=== PATIENT | male | born 1975 | race Caucasian/White ===

== ENCOUNTER 2016-07-10 15:35 | Inpatient (IN) | payer OTHER ==
[2016-07-10] MEDS ORDERED: Aspirin 81 MG Tab.Chew ONE (15:56)
[2016-07-10] MEDS ORDERED: Nitroglycerin 0.4 MG Tab.SL ONE (15:57)
[2016-07-10] MEDS ORDERED: HYDROmorphone 1 MG/ML Syringe IVPUSH ONE (15:58)
[2016-07-10] MEDS ORDERED: Metoclopramide 10 MG/2 ML SDV IVPUSH ONE (15:59)
[2016-07-10] MEDS ORDERED: Sodium Chloride 0.9% 1,000 ML IV SCH (16:00)
[2016-07-10] MEDS ORDERED: Nitroglycerin/D5W 25 MG/250 ML BOTTLE IV SCH (16:00)
[2016-07-10] MEDS ORDERED: Hyoscyamine 0.125 MG Tab.SL SL ONE (16:03)
--- NOTE | 2016-07-10 16:04 | EDM.PDOC ---
ED HISTORY OF PRESENT ILLNESS - General Chief Complaint: Chest Pain Stated Complaint: CHEST PAIN Time Seen by Provider: 07/10/16 15:58 Source of Information: Reports: Patient History Limitations: Reports: No limitations - History of Present Illness INITIAL COMMENTS - FREE TEXT/NARRATIVE: 41-year-old male presents the ED with complaints of severe retrosternal mid chest pain that does not radiate to his back throat neck or arm. States he woke with this about 1300 hours today. 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 Still has a strong smell of ethanol on his breath. States the pain is constant rates it as a 10 out of 10. He said vomiting x2 every tried to time he tried to drink water the last half hour. No hematemesis. Does have a history of GERD. Rarely uses TUMS or Rolaids. Has no known heart disease. Smokes occasionally when he drinks.pain has a strong burning quality to it. Symptom Onset Date: 07/10/16 Symptom Onset Time: 13:00 Timing/Duration: Reports: Hour(s):, Sudden onset Severity: moderate (awoke from sleep with this pain) Location, General: Reports: chest (central chest pain) Quality: Reports: Ache, Burning, Pressure Improves with: Reports: None Worsens with: Reports: Other (preps worse with swallowing water. I anesthesia.) Context, General: Reports: Other (awoke from sleep with this discomfort.). Denies: Activity, Exercise, Lifting, Sick contact, Trauma Associated Symptoms (General): Reports: chest pain, nausea/vomiting (vomited twice of water that he tried to drink in the last half hour). Denies: confusion , cough (see history of present illness), cough w sputum, diaphoresis, fever/ chills, headaches, loss of appetite, malaise, rash, seizure, shortness of breath , syncope Treatments [employer]ER [employer]: Reports: Other (see below) (none) - Related Data Allergies/ADRs: Allergies Allergy/AdvReac Type Severity Reaction Status Date / Time No Known Allergies Allergy Verified 07/10/16 15:42 Home Meds: Home Meds Aspirin [Ecotrin] 81 mg PO DAILY 07/10/16 [History] Humalog Pump 0 units INJECT 07/10/16 [History] Lisinopril 20 mg PO DAILY 07/10/16 [History] Omeprazole 20 mg PO DAILY 07/10/16 [History] atorvaSTATin [Lipitor] 10 mg PO DAILY 07/10/16 [History] Past Medical History Cardiovascular History: Reports: High cholesterol, Hypertension Endocrine/Metabolic History: Reports: Diabetes, type I (controlled with an insulin pump which at this point time does not appear to be connected to his skin.he has been type I diabetic since age 13. Currently using about 64 units of insulin per day. Boluses around 30 units.) - Past Surgical History Musculoskeletal Surgical History: Reports: Shoulder surgery Social & Family History - Tobacco Use Smoking Status *Q: Current Some Day Smoker Years of Tobacco use: 10 Packs/Tins Daily: 0.2 - Caffeine Use Caffeine Use: Reports: Coffee - Recreational Drug Use Recreational Drug Use: No - Living Situation & Occupation Living situation: Reports: Occupation: employed ED ROS GENERAL - Review of Systems Review Of Systems: See Below Constitutional: Denies: fever, chills, malaise, weakness, fatigue, weight loss HEENT: Reports: No symptoms, Other (feels very dry in his mouth.) Respiratory: Denies: Shortness of Breath, Wheezing, Pleuritic Chest Pain, Cough , Sputum, Hemoptysis Cardiovascular: Reports: Chest pain (see history present illness). Denies: Blood pressure problem, Claudication, Dyspnea on exertion, Edema, Lightheadedness, Orthopnea, Palpitations Endocrine: Reports: no symptoms GI/Abdominal: Reports: Abdominal pain (some pain in the pit of his stomach or epigastrium.), Nausea, Vomiting (followup water twice since he tried to drink since getting up from bed.). Denies: Diarrhea : Reports: no symptoms Musculoskeletal: Reports: no symptoms Skin: Reports: no symptoms Neurological: Reports: No Symptoms ED EXAM, GENERAL - Physical Exam Exam: See Below Exam Limited By: No limitations General Appearance: alert, moderate distress, other (in quite significant discomfort.breath smells strongly of alcohol.) Eye Exam: bilateral eye: conjunctival injection (mild bilaterally) Throat/Mouth: Normal inspection, Normal lips, Normal teeth, Normal oropharynx Head: atraumatic, normocephalic Neck: normal inspection, supple, non-tender, full range of motion. No: lymphadenopathy (L), lymphadenopathy (R) Respiratory/Chest: lungs clear, no accessory muscle use, chest non-tender, respiratory distress Cardiovascular: normal peripheral pulses, regular rate, rhythm, no edema, no gallop, no JVD, no murmur Peripheral Pulses: 3+: posterior tibial (L), posterior tibial (R), dorsalis pedis (L), dorsalis pedis (R) GI/Abdominal: normal bowel sounds, soft, non tender, no organomegaly, no distention, no abnormal bruit, other (Male) Exam: No hernia (negative Holt sign) Extremities: normal inspection, normal range of motion, non-tender, no pedal edema, normal capillary refill Neurological: alert, oriented, CN II-XII intact, normal cognition, normal gait Psychiatric: normal affect, normal mood Skin Exam: Warm, Dry, Intact, Normal color, No rash EKG INTERPRETATION EKG Date: 07/10/16 Time: 15:45 Rhythm: NSR Rate (beats/min): 85 [place]: normal P-wave: present QRS: other (low voltage limb leads.) ST-T: normal QT: normal Course - Vital Signs Last Recorded V/S: Last Vital Signs Temp 36.1 C 07/10/16 15:42 Pulse 90 07/10/16 15:42 Resp 22 H 07/10/16 15:42 BP 102/41 L 07/10/16 16:42 Pulse Ox 100 07/10/16 15:42 - Orders/Labs/Meds Orders: Active Orders 24 hr Category Date Time Status Admission Status [Patient Status] [ADT] Routine ADT 07/10/16 18:40 Active EKG Documentation Completion [RC] STAT Care 07/10/16 16:01 Active Chest 1V Frontal [CR] Stat Exams 07/10/16 16:01 Taken CKMB [CHEM] Stat Lab 07/10/16 19:30 Ordered DRUG SCREEN, URINE [URCHEM] Stat Lab 07/10/16 17:35 Uncollected KETONES,BLOOD [CHEM] Stat Lab 07/10/16 18:05 Received TROPONIN I [CHEM] Stat Lab 07/10/16 19:30 Ordered URINALYSIS W/MICROSCOPIC [UA W/MICROSCOPIC] [URIN] Stat Lab 07/10/16 17:35 Uncollected Nitroglycerin/D5W [Nitroglycerin 25 MG/D5W 250 ML] Med 07/10/16 16:00 Active 25 mg in 250 ml IV TITRATE Sodium Chloride 0.9% [Normal Saline] 1,000 ml Med 07/10/16 18:46 Active IV ONETIME Medication Orders Nitroglycerin/Dextrose (Nitroglycerin 25 Mg/D5w 250 Ml) 25 mg in 250 mls @ 6 mls/hr IV TITRATE WERNER PRN Reason: 10 MCG/MIN Last Admin: 07/10/16 16:15 Dose: 10 mcg/min, 6 mls/hr Sodium Chloride (Normal Saline) 1,000 mls @ 999 mls/hr IV ONETIME ONE Stop: 07/10/16 19:46 Last Admin: 07/10/16 19:36 Dose: 999 mls/hr Labs: Laboratory Tests 07/10/16 07/10/16 07/10/16 Range/Units 15:50 15:50 15:50 WBC 12.52 H (4.23-9.07) K/mm3 RBC 5.25 (4.63-6.08) M/mm3 Hgb 16.6 (13.7-17.5) gm/L Hct 48.2 (40.1-51.0) % MCV 91.8 (79.0-92.2) fl MCH 31.6 (25.7-32.2) pg MCHC 34.4 (32.2-35.5) g/dl RDW Std Deviation 40.0 (35.1-43.9) fL Plt Count 345 H (163-337) K/mm3 MPV 10.6 (9.4-12.3) fl Neutrophils % (Manual) 75 H (40-60) % Band Neutrophils % 1 (0-10) % Lymphocytes % (Manual) 23 (20-40) % Atypical Lymphs % 0 % Monocytes % (Manual) 0 L (2-10) % Eosinophils % (Manual) 0 L (0.8-7.0) % Basophils % (Manual) 1 (0.2-1.2) Platelet Estimate Adequate RBC Morph Comment Normal PT 10.0 (8.0-13.0) SECONDS INR 0.92 Puncture Site ABG pH (7.35-7.45) ABG pCO2 (35.0-45.0) mmHg ABG pO2 (80.0-100.0) mmHg ABG HCO3 (22.0-26.0) meq/L ABG O2 Saturation (96.0-97.0) % ABG Base Excess (-2-2.0) Nick Test A-a Gradient mmHg FiO2 (21.00-100.00) % Sodium 140 (136-145) mEq/L Potassium 4.6 (3.5-5.1) mEq/L Chloride 99 (98-107) mEq/L Carbon Dioxide 17 L (21-32) mEq/L Anion Gap 28.6 H (5-15) BUN 19 H (7-18) mg/dL Creatinine 1.6 H (0.7-1.3) mg/dL Est Cr Clr Drug Dosing 60.14 mL/min Estimated GFR (MDRD) 48 (>60) mL/min BUN/Creatinine Ratio 11.9 L (14-18) Glucose 305 H (74-106) mg/dL Lactic Acid (0.4-2.0) mmol/L Calcium 9.6 (8.5-10.1) mg/dL Magnesium 1.8 (1.8-2.4) mg/dl Total Bilirubin 0.6 (0.2-1.0) mg/dL AST 35 (15-37) U/L ALT 110 H (16-63) U/L Alkaline Phosphatase 83 (46-116) U/L CK-MB (CK-2) 0.9 (0-3.6) ng/ml Troponin I < 0.017 (0.00-0.056) ng/mL C-Reactive Protein < 0.2 (<1.0) mg/dL Total Protein 7.7 (6.4-8.2) g/dl Albumin 4.8 (3.4-5.0) g/dl Globulin 2.9 gm/dL Albumin/Globulin Ratio 1.7 (1-2) Amylase 39 (25-115) U/L Salicylates (2.8-20) mg/dL Acetaminophen (10-30) ug/mL Ethyl Alcohol (0.00) gm% 07/10/16 07/10/16 07/10/16 Range/Units 16:05 18:04 18:05 WBC (4.23-9.07) K/mm3 RBC (4.63-6.08) M/mm3 Hgb (13.7-17.5) gm/L Hct (40.1-51.0) % MCV (79.0-92.2) fl MCH (25.7-32.2) pg MCHC (32.2-35.5) g/dl RDW Std Deviation (35.1-43.9) fL Plt Count (163-337) K/mm3 MPV (9.4-12.3) fl Neutrophils % (Manual) (40-60) % Band Neutrophils % (0-10) % Lymphocytes % (Manual) (20-40) % Atypical Lymphs % % Monocytes % (Manual) (2-10) % Eosinophils % (Manual) (0.8-7.0) % Basophils % (Manual) (0.2-1.2) Platelet Estimate RBC Morph Comment PT (8.0-13.0) SECONDS INR Puncture Site Lt radial ABG pH 7.20 L (7.35-7.45) ABG pCO2 26.0 L (35.0-45.0) mmHg ABG pO2 83.0 (80.0-100.0) mmHg ABG HCO3 9.9 L (22.0-26.0) meq/L ABG O2 Saturation 96.0 (96.0-97.0) % ABG Base Excess -17.0 L (-2-2.0) Nick Test Positive A-a Gradient 26 mmHg FiO2 21.00 (21.00-100.00) % Sodium (136-145) mEq/L Potassium (3.5-5.1) mEq/L Chloride (98-107) mEq/L Carbon Dioxide (21-32) mEq/L Anion Gap (5-15) BUN (7-18) mg/dL Creatinine (0.7-1.3) mg/dL Est Cr Clr Drug Dosing mL/min Estimated GFR (MDRD) (>60) mL/min BUN/Creatinine Ratio (14-18) Glucose (74-106) mg/dL Lactic Acid 10.5 H (0.4-2.0) mmol/L Calcium (8.5-10.1) mg/dL Magnesium (1.8-2.4) mg/dl Total Bilirubin (0.2-1.0) mg/dL AST (15-37) U/L ALT (16-63) U/L Alkaline Phosphatase (46-116) U/L CK-MB (CK-2) (0-3.6) ng/ml Troponin I (0.00-0.056) ng/mL C-Reactive Protein (<1.0) mg/dL Total Protein (6.4-8.2) g/dl Albumin (3.4-5.0) g/dl Globulin gm/dL Albumin/Globulin Ratio (1-2) Amylase (25-115) U/L Salicylates (2.8-20) mg/dL Acetaminophen (10-30) ug/mL Ethyl Alcohol 116.00 (0.00) gm% 07/10/16 07/10/16 Range/Units 18:05 18:05 WBC (4.23-9.07) K/mm3 RBC (4.63-6.08) M/mm3 Hgb (13.7-17.5) gm/L Hct (40.1-51.0) % MCV (79.0-92.2) fl MCH (25.7-32.2) pg MCHC (32.2-35.5) g/dl RDW Std Deviation (35.1-43.9) fL Plt Count (163-337) K/mm3 MPV (9.4-12.3) fl Neutrophils % (Manual) (40-60) % Band Neutrophils % (0-10) % Lymphocytes % (Manual) (20-40) % Atypical Lymphs % % Monocytes % (Manual) (2-10) % Eosinophils % (Manual) (0.8-7.0) % Basophils % (Manual) (0.2-1.2) Platelet Estimate RBC Morph Comment PT (8.0-13.0) SECONDS INR Puncture Site ABG pH (7.35-7.45) ABG pCO2 (35.0-45.0) mmHg ABG pO2 (80.0-100.0) mmHg ABG HCO3 (22.0-26.0) meq/L ABG O2 Saturation (96.0-97.0) % ABG Base Excess (-2-2.0) Nick Test A-a Gradient mmHg FiO2 (21.00-100.00) % Sodium (136-145) mEq/L Potassium (3.5-5.1) mEq/L Chloride (98-107) mEq/L Carbon Dioxide (21-32) mEq/L Anion Gap (5-15) BUN (7-18) mg/dL Creatinine (0.7-1.3) mg/dL Est Cr Clr Drug Dosing mL/min Estimated GFR (MDRD) (>60) mL/min BUN/Creatinine Ratio (14-18) Glucose (74-106) mg/dL Lactic Acid (0.4-2.0) mmol/L Calcium (8.5-10.1) mg/dL Magnesium (1.8-2.4) mg/dl Total Bilirubin (0.2-1.0) mg/dL AST (15-37) U/L ALT (16-63) U/L Alkaline Phosphatase (46-116) U/L CK-MB (CK-2) (0-3.6) ng/ml Troponin I (0.00-0.056) ng/mL C-Reactive Protein (<1.0) mg/dL Total Protein (6.4-8.2) g/dl Albumin (3.4-5.0) g/dl Globulin gm/dL Albumin/Globulin Ratio (1-2) Amylase (25-115) U/L Salicylates 2.9 (2.8-20) mg/dL Acetaminophen 1 L (10-30) ug/mL Ethyl Alcohol (0.00) gm% Meds: Medications Generic Name Dose Route Start Last Admin Trade Name Freq PRN Reason Stop Dose Admin Nitroglycerin/Dextrose 25 mg in 250 mls @ 6 mls/hr 07/10/16 16:00 07/10/16 16 :15 Nitroglycerin 25 Mg/D5w 250 Ml IV 10 mcg/min TITRATE WERNER 6 mls/hr 10 MCG/MIN Administration Sodium Chloride 1,000 mls @ 999 mls/hr 07/10/16 18:46 07/10/16 19:36 Normal Saline IV 07/10/16 19:46 999 mls/hr ONETIME ONE Administration Discontinued Medications Generic Name Dose Route Start Last Admin Trade Name Freq PRN Reason Stop Dose Admin Aspirin Confirm 07/10/16 15:56 07/10/16 16:42 Aspirin Administered 07/10/16 15:57 Not Given Dose 324 mg .ROUTE .STK-MED ONE Hydromorphone HCl 1 mg 07/10/16 15:58 07/10/16 16:06 Dilaudid IVPUSH 07/10/16 15:59 1 mg ONETIME ONE Administration Hyoscyamine 0.125 mg 07/10/16 16:03 07/10/16 16:08 Hyomax-Sl SL 07/10/16 16:04 0.125 mg ONETIME ONE Administration Sodium Chloride 1,000 mls @ 150 mls/hr 07/10/16 16:00 07/10/16 16:17 Normal Saline IV 150 mls/hr ASDIRECTED WERNER Administration Sodium Chloride 1,000 mls @ 999 mls/hr 07/10/16 17:45 07/10/16 17:55 Normal Saline IV 07/10/16 18:45 999 mls/hr ONETIME ONE Administration Sodium Chloride 1,000 mls @ 999 mls/hr 07/10/16 18:37 Normal Saline IV 07/10/16 19:37 ONETIME ONE Insulin Human Regular 10 unit 07/11/16 06:00 Humulin R SUBCUT 07/11/16 06:01 ONETIME ONE Protocol Insulin Human Regular Confirm 07/10/16 18:01 07/10/16 18:33 Humulin R Administered 07/10/16 18:02 Not Given Dose 300 unit .ROUTE .STK-MED ONE Insulin Human Regular 10 unit 07/10/16 18:00 07/10/16 18:20 Humulin R SUBCUT 07/10/16 18:01 10 units ONETIME ONE Administration Protocol Metoclopramide HCl 10 mg 07/10/16 15:59 07/10/16 16:04 Reglan IVPUSH 07/10/16 16:00 10 mg ONETIME ONE Administration Nitroglycerin Confirm 07/10/16 15:57 07/10/16 16:42 Nitrostat Administered 07/10/16 15:58 Not Given Dose 0.4 mg .ROUTE .STK-MED ONE Ondansetron HCl 4 mg 07/10/16 17:50 07/10/16 17:55 Zofran IVPUSH 07/10/16 17:51 4 mg ONETIME ONE Administration - Radiology Interpretation Free Text/Narrative:: 31-year-old male presenting to the ED with acute onset of central chest pain it does not radiate anywhere. States he awoke with this chest pain at 1300 hours. Rates it as a 10 out of 10. Has no known cardiac disease. Does smoke half a pack of cigarettes daily. He was out drinking alcohol into the wee hours of the morning. He has vomited twice of water that he try to take him since he awoke. Pain does not radiate through to his back.does have a history of GERD but doesn' t take medicine for it. ECG shows sinus rhythm without any signs of ischemia at 85 per minute. I suspect his pain is due to reflux and esophagitis. May be hiatal hernia. However he will be treated like an NC until we know for sure. Aspirin 324 mg 2 nitro drip at 10 mcg per minute. Initial BP is 129/86. Chest x- ray routine labs include cardiac markers. Given Dilaudid 1 mg IV with Reglan 10 mg IV for pain relief. routine labs include cardiac markers. Also an amylase and a serum blood alcohol level. We'll try Levsin 0.125 mg sublingual as well to relieve tension esophageal spasm. - Re-Assessments/Exams Free Text/Narrative Re-Assessment/Exam: 07/10/16 16:22 :blood pressure dropped transiently to 68 systolic with a nitro drip. He was therefore discontinued. 5 minutes later BP i is back up to 102 systolic with a heart rate of 89. 07/10/16 17:05: one view portable chest x-ray is within normal limits. Her blood pressure is 109/59 with a heart rate of 85 and saw sats of 94% on room air. 07/10/16 17:38labs are back and showed elevated white count at 12.52 with a 75% neutrophils 1% band cells. Hemoglobin is 16.6 hematocrit 48.2. Is normal 3 and 45,000. Coags normal. Sodium 140 potassium 4.6 chloride 97 bicarbonate is low at 17. Anion gap was markedly elevated at 28.6. Creatinine is 1.6 BUN is 19 glucose 305.blood alcohol is zero. Therefore we have a significant metabolic acidosis of unclear etiology. His blood sugar is elevated. Serum ketones and lactic acid urine for uric crystals and salicylate levels will be checked in his blood. IV will be opened to full. Cardiac markers are normal. Amylase is 39. 07/10/16 17:50 Further questioning of the patient's indicates that he was just out drinking hard last evening about 6 clock this morning. He is in fact an insulin-dependent diabetic and on insulin pump which at present is disconnected from his skin. I can now smells strongly ketones on his breath. Therefore we will leave the insulin pump disconnected. We will use small doses of intravenous insulin to control his blood sugars and will require 3-4 L of IV fluids to correct the metabolic acidosis.metabolic acidosis is secondary to diabetic ketoacidosis precipitated by alcohol-induced ketosis.is vomiting again. We'll give him Zofran 4 mg IV. 07/10/16 18:24blood gases shows pH of 7.2 with a base deficit this deficit of - 17. Therefore he is going to be several hours if not 1224 hours to correct his metabolic acidosis. I will therefore speak with on-call hospice with a view to getting admitted to the hospital for fluid replacement and continued small doses of insulin as needed to correct his combination diabetic and alcohol- induced ketosis. 07/10/16 18:47Spoke with on-call hospitalist Dr. Grier and decision made to admit this patient to the intensive care unit for treatment of his diabetic ketoacidosis and alcohol-induced ketosis. He require multiple units of saline to reverse the acidosis. Require small doses of insulin ideally subcutaneously to control his blood sugars. His presentation was that of central chest pain and when her to repeat cardiac markers. I will repeat them at 1900 hours 07/10/16 19:38 Lab called and identified a lab area in his alcohol content in his blood. It was reported as zero. It was actually 0.116 g percent.lactic acid level also came back markedly elevated at 10.5. This should be repeated in 3-4 hours as well. Serum salicylate level was 2.9 well within normal range.Note: serum ketones are not yet back either. Second set of cardiac markers are negative back either. Departure - Departure Time of Disposition: 19:44 Disposition: Admitted As Inpatient 65 Condition: serious Clinical Impression: Alcoholic ketosis, Chest pain in adult Diabetic ketoacidosis associated with type 1 diabetes mellitus Qualifiers: Diabetes mellitus complication detail: without coma Qualified Code(s): E10.10 - Type 1 diabetes mellitus with ketoacidosis without coma Intractable nausea and vomiting Qualifiers: Vomiting type: unspecified Qualified Code(s): R11.2 - Nausea with vomiting, unspecified Alcohol intoxication Qualifiers: Complication of substance-induced condition: uncomplicated Qualified Code(s): F10.120 - Alcohol abuse with intoxication, uncomplicated Referrals: Vikram Salvador MD [Primary Care Provider] - Forms: ED Department Discharge Additional Instructions: patient to be admitted to the intensive care he had in the care of hospitalist Dr. Grier to repair his metabolic acidotic state which is from a combination of alcohol abuse alcohol use ketosis and diabetic ketoacidosis. He also has a significant lactic acidosis. Presentation with central chest pain and second set of cardiac markers are now back time of discharge to the intensive care unit. - My Orders Last 24 Hours: My Active Orders 07/10/16 16:00 Nitroglycerin/D5W [Nitroglycerin 25 MG/D5W 250 ML] 25 mg in 250 ml IV TITRATE 07/10/16 16:01 EKG Documentation Completion [RC] STAT Chest 1V Frontal [CR] Stat 07/10/16 17:35 DRUG SCREEN, URINE [URCHEM] Stat URINALYSIS W/MICROSCOPIC [UA W/MICROSCOPIC] [URIN] Stat 07/10/16 18:05 KETONES,BLOOD [CHEM] Stat 07/10/16 18:40 Admission Status [Patient Status] [ADT] Routine 07/10/16 18:46 Sodium Chloride 0.9% [Normal Saline] 1,000 ml IV ONETIME 07/10/16 19:30 CKMB [CHEM] Stat TROPONIN I [CHEM] Stat - Assessment/Plan Last 24 Hours: My Active Orders 07/10/16 16:00 Nitroglycerin/D5W [Nitroglycerin 25 MG/D5W 250 ML] 25 mg in 250 ml IV TITRATE 07/10/16 16:01 EKG Documentation Completion [RC] STAT Chest 1V Frontal [CR] Stat 07/10/16 17:35 DRUG SCREEN, URINE [URCHEM] Stat URINALYSIS W/MICROSCOPIC [UA W/MICROSCOPIC] [URIN] Stat 07/10/16 18:05 KETONES,BLOOD [CHEM] Stat 07/10/16 18:40 Admission Status [Patient Status] [ADT] Routine 07/10/16 18:46 Sodium Chloride 0.9% [Normal Saline] 1,000 ml IV ONETIME 07/10/16 19:30 CKMB [CHEM] Stat TROPONIN I [CHEM] Stat
[2016-07-10] MEDS ORDERED: Sodium Chloride 0.9% 1,000 ML IV ONE ×3 (17:45→18:46)
[2016-07-10] MEDS ORDERED: Ondansetron 4 MG/2 ML SDV IVPUSH ONE (17:50)
[2016-07-10] MEDS ORDERED: Insulin Regular, Human 100 Units/ML 3 ML Vial SUBCUT ONE (18:00)
[2016-07-10] MEDS: Insulin Regular, Human 100 Units/ML 3 ML Vial ONE ×2 (18:22→18:33)
[2016-07-10] MEDS ORDERED: Temazepam 30 MG Cap PO PRN (21:00)
[2016-07-10] MEDS ORDERED: Acetaminophen 325 MG Tab PO PRN (21:01)
[2016-07-10] MEDS ORDERED: Promethazine 12.5 MG in Sodium Chloride 0.9% 50 ML IV PRN (21:04)
[2016-07-10] MEDS ORDERED: Ondansetron 4 MG/2 ML SDV IVPUSH PRN (21:04)
--- NOTE | 2016-07-10 21:05 | PCM.HP ---
H&P History of Present Illness - General Date of Service: 07/10/16 Admit Problem/Dx: Admission Diagnosis/Problem Admission Diagnosis/Problem Metabolic acidosis Source of Information: Patient, Provider History Limitations: Reports: No limitations - History of Present Illness Initial Comments - Free Text/Narative: 41 year old male PMH of diabetes mellitus presented with chest pain, has had two negative enzymes. Lab studies documented dehydration, acute on chronic renal insufficiency as well as DKA. He will be admitted to the ICU, and has been started on the DKA protocol. 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 ETOH level is documented at 0.116 Onset of Symptoms: Reports: sudden. Denies: gradual Symptom Onset Date: 07/10/16 Duration of Symptoms: Reports: Hour(s):, Getting worse Location: Reports: chest, abdomen Quality: Reports: Same as previous episode Severity: moderate Improves with: Reports: Medication Worsens with: Reports: None Associated Symptoms: Reports: chest pain, nausea/vomiting Chest Pain Score (Numeric/FACES): 10 Headache Pain Score (Numeric/FACES): 2 - Related Data Allergies/Adverse Reactions: Allergies Allergy/AdvReac Type Severity Reaction Status Date / Time No Known Allergies Allergy Verified 07/10/16 15:42 Home Medications: Home Meds Aspirin [Ecotrin] 81 mg PO DAILY 07/10/16 [History] Humalog Pump 0 units INJECT 07/10/16 [History] Lisinopril 20 mg PO DAILY 07/10/16 [History] Omeprazole 20 mg PO DAILY 07/10/16 [History] atorvaSTATin [Lipitor] 10 mg PO DAILY 07/10/16 [History] Past Medical History Cardiovascular History: Reports: High cholesterol, Hypertension Endocrine/Metabolic History: Reports: Diabetes, type I (controlled with an insulin pump which at this point time does not appear to be connected to his skin.he has been type I diabetic since age 13. Currently using about 64 units of insulin per day. Boluses around 30 units.) - Past Surgical History Musculoskeletal Surgical History: Reports: Shoulder surgery Social & Family History - Tobacco Use Smoking Status *Q: Current Some Day Smoker Years of Tobacco use: 10 Packs/Tins Daily: 0.2 - Caffeine Use Caffeine Use: Reports: Coffee - Recreational Drug Use Recreational Drug Use: No - Living Situation & Occupation Living situation: Reports: Occupation: employed H&P Review of Systems - Review of Systems: Review Of Systems: See Below General: Reports: malaise HEENT: Reports: no symptoms Pulmonary: Reports: No Symptoms Cardiovascular: Reports: chest pain Gastrointestinal: Reports: Abdominal pain, Nausea, Vomiting Genitourinary: Reports: no symptoms Musculoskeletal: Reports: no symptoms Skin: Reports: no symptoms Psychiatric: Reports: no symptoms Neurological: Reports: No Symptoms Hematologic/Lymphatic: Reports: no symptoms Immunologic: Reports: no symptoms Exam - Exam Exam: See Below - Vital Signs Vital Signs: Last Vital Signs Temp 36.1 C 07/10/16 15:42 Pulse 90 07/10/16 15:42 Resp 22 H 07/10/16 15:42 BP 102/41 L 07/10/16 16:42 Pulse Ox 100 07/10/16 15:42 Weight: 83.915 kg - Exam Quality Assessment: DVT prophylaxis General: alert, oriented, mild distress HEENT: EACs clear, EOMI, Nares patent, Pupils equal, Pupils reactive, TMs clear , Other (dry mucosa) Neck: supple, trachea midline Lungs: Normal respiratory effort Cardiovascular: regular rate, tachycardia Abdomen: normal bowel sounds, soft (Male) Exam: Deferred Rectal (Males) Exam: Deferred Back Exam: normal inspection Extremities: normal pulses Skin: warm, dry Neurological: cranial nerves intact, normal gait, normal speech Neuro Extensive - Mental Status: alert, oriented x3, normal mood/affect, normal cognition, memory intact Neuro Extensive - Motor, Sensory, Reflexes: CN II-XII intact Psychiatric: alert, normal affect, normal mood - Patient Data Lab Results last 24 hrs: Laboratory Results - last 24 hr 07/10/16 07/10/16 07/10/16 Range/Units 19:41 19:45 19:45 POC Glucose (70-105) mg/dL CK-MB (CK-2) 0.8 (0-3.6) ng/ml Troponin I < 0.017 (0.00-0.056) ng/mL Urine Color Light yellow (Yellow) Urine Appearance Clear (Clear) Urine pH 5.5 (5.0-8.0) Ur Specific [place] 1.025 (1.005-1.030) Urine Protein 1+ H (Negative) Urine Glucose (UA) 2+ H (Negative) Urine Ketones 3+ H (Negative) Urine Occult Blood Negative (Negative) Urine Nitrite Negative (Negative) Urine Bilirubin Negative (Negative) Urine Urobilinogen 0.2 (0.2-1.0) Ur Leukocyte Esterase Negative (Negative) Urine RBC Not seen (0-5) /hpf Urine WBC 0-5 (0-5) /hpf Ur Squamous Epith Cells 0-5 (0-5) /hpf Urine Bacteria Not seen (FEW) /hpf Urine Mucus Not seen (FEW) /hpf Urine Opiates Screen Presumptive positive H (NEGATIVE) Ur Buprenorphine Scrn Negative (NEGATIVE) Ur Oxycodone Screen Negative (NEGATIVE) Urine Methadone Screen Negative (NEGATIVE) Ur Propoxyphene Screen Negative (NEGATIVE) Ur Barbiturates Screen Negative (NEGATIVE) Ur Tricyclics Screen Negative (NEGATIVE) Ur Phencyclidine Scrn Negative (NEGATIVE) Ur Amphetamine Screen Negative (NEGATIVE) U Methamphetamines Scrn Negative (NEGATIVE) U Benzodiazepines Scrn Negative (NEGATIVE) U Cocaine Metab Screen Negative (NEGATIVE) U Marijuana (THC) Screen Negative (NEGATIVE) 07/10/16 Range/Units 19:48 POC Glucose 271 H (70-105) mg/dL CK-MB (CK-2) (0-3.6) ng/ml Troponin I (0.00-0.056) ng/mL Urine Color (Yellow) Urine Appearance (Clear) Urine pH (5.0-8.0) Ur Specific [place] (1.005-1.030) Urine Protein (Negative) Urine Glucose (UA) (Negative) Urine Ketones (Negative) Urine Occult Blood (Negative) Urine Nitrite (Negative) Urine Bilirubin (Negative) Urine Urobilinogen (0.2-1.0) Ur Leukocyte Esterase (Negative) Urine RBC (0-5) /hpf Urine WBC (0-5) /hpf Ur Squamous Epith Cells (0-5) /hpf Urine Bacteria (FEW) /hpf Urine Mucus (FEW) /hpf Urine Opiates Screen (NEGATIVE) Ur Buprenorphine Scrn (NEGATIVE) Ur Oxycodone Screen (NEGATIVE) Urine Methadone Screen (NEGATIVE) Ur Propoxyphene Screen (NEGATIVE) Ur Barbiturates Screen (NEGATIVE) Ur Tricyclics Screen (NEGATIVE) Ur Phencyclidine Scrn (NEGATIVE) Ur Amphetamine Screen (NEGATIVE) U Methamphetamines Scrn (NEGATIVE) U Benzodiazepines Scrn (NEGATIVE) U Cocaine Metab Screen (NEGATIVE) U Marijuana (THC) Screen (NEGATIVE) Result Diagrams: 07/11/16 04:25 07/11/16 12:31 *Q Meaningful Use (ADM) - VTE *Q VTE Criteria *Q: - Stroke *Q Stroke Criteria *Q: - AMI *Q AMI Criteria *Q: Problem List Initiated/Reviewed/Updated: Yes Orders Last 24hrs: Active Orders 24 hr Category Date Time Status Activity as Tolerated [RC] .Routine Care 07/10/16 20:50 Ordered Antiembolic Devices [RC] PER UNIT ROUTINE Care 07/10/16 20:53 Ordered CIWAA Assessment [RC] ASDIRECTED Care 07/10/16 20:59 Ordered EKG 12 Lead [EKG Documentation Completion] [RC] ROUTINE Care 07/11/16 08:00 Ordered Vital Signs [RC] PER UNIT ROUTINE Care 07/10/16 20:50 Ordered Consult to Manager Fashion [Consult to Diabetic Nurse Cons 07/11/16 10:00 Ordered Specialist] [CONS] Routine Consult to Diabetic Nurse Specialist [CONS] Routine Cons 07/11/16 09:00 Ordered Consult to Soft Top Installer [CONS] Routine Cons 07/10/16 21:00 Ordered NPO [Nothing Per Oral Diet] [DIET] Diet 07/10/16 Dinner Ordered CBC WITH AUTO DIFF [HEME] Routine Lab 07/11/16 05:00 Ordered CRP [C-REACTIVE PROTEIN] [CHEM] Routine Lab 07/11/16 05:00 Ordered GLYCOSYLATED HEMOGLOBIN,HGBA1C [CHEM] Routine Lab 07/11/16 05:00 Ordered MYCOPLASMA PNEUMONIAE IGM AB [CHEM] Routine Lab 07/11/16 05:00 Ordered Acetaminophen [Tylenol] Med 07/10/16 21:01 Ordered 650 mg PO Q6H PRN Aspirin [Halfprin] Med 07/11/16 09:00 Ordered 81 mg PO DAILY Calcium Carbonate [Tums] Med 07/10/16 21:03 Ordered 1,000 mg PO Q2HR PRN Lisinopril [Prinivil] Med 07/11/16 09:00 Ordered 20 mg PO DAILY Ondansetron [Zofran] Med 07/10/16 21:04 Ordered 4 mg IVPUSH Q8H PRN Pantoprazole [ProTONIX IV] Med 07/10/16 21:15 Ordered 40 mg IVPUSH Q12H Promethazine [Phenergan] 12.5 mg Med 07/10/16 21:04 Ordered Sodium Chloride 0.9% [Normal Saline] 50 ml IV Q6H Regular Insulin,Human 100 Units in Normal Saline @ 0.5 Med 07/10/16 21:00 Ordered Units/HR(100ml) Insulin Regular, Human [HumuLIN R] 100 unit Sodium Chloride 0.9% [Normal Saline] 99 ml IV TITRATE Sodium Chloride 0.9% [Normal Saline] 1,000 ml Med 07/10/16 21:00 Ordered IV ASDIRECTED Temazepam [Restoril] Med 07/10/16 21:00 Ordered 30 mg PO BEDTIME PRN atorvaSTATin Med 07/11/16 09:00 Ordered 10 mg PO DAILY TOM Hose [Antiembolic Hose] [OM.PC] Routine Oth 07/10/16 20:53 Ordered Code Status [Resuscitation Status] Routine Resus Stat 07/10/16 21:03 Ordered Medication Orders Acetaminophen (Tylenol) 650 mg PO Q6H PRN PRN Reason: Fever Aspirin (Halfprin) 81 mg PO DAILY WERNER Calcium Carbonate/Glycine (Tums) 1,000 mg PO Q2HR PRN PRN Reason: Indigestion Nitroglycerin/Dextrose (Nitroglycerin 25 Mg/D5w 250 Ml) 25 mg in 250 mls @ 6 mls/hr IV TITRATE WERNER PRN Reason: 10 MCG/MIN Last Admin: 07/10/16 16:15 Dose: 10 mcg/min, 6 mls/hr Insulin Human Regular 100 unit (/ Sodium Chloride) 100 mls @ 0.5 mls/hr IV TITRATE WERNER; 0.5 UNITS/HR PRN Reason: Protocol Sodium Chloride (Normal Saline) 1,000 mls @ 999 mls/hr IV ASDIRECTED WERNER Promethazine HCl 12.5 mg/ (Sodium Chloride) 50.5 mls @ 100 mls/hr IV Q6H PRN PRN Reason: Nausea/Vomiting Lisinopril (Prinivil) 20 mg PO DAILY WERNER Non-Formulary Medication (Atorvastatin) 10 mg PO DAILY WERNER Ondansetron HCl (Zofran) 4 mg IVPUSH Q8H PRN PRN Reason: Nausea/Vomiting Pantoprazole Sodium (Protonix Iv) 40 mg IVPUSH Q12H WERNER Temazepam (Restoril) 30 mg PO BEDTIME PRN PRN Reason: Insomnia Assessment/Plan Comment:: Impression/Plan: ETOH binge drinking on the day of presentation; level 0.116 Does not appear to be chronic; would suggest assessment as an outpatient. CKD, stage III, acute on chronic; dehydration--->pre-renal Will add low dose ACEI. History of GERD Would benefit from OP evaluation Chest pain, risk factors for CAD, ECG/cardiac enzymes were negative Will need stress test as an outpatient Lipids Panel DKA, mildly elevated BS with significant AG DKA protocol Diabetic teaching/education before DC as well as as outpatient Elevated Lactic acid Follow labs daily GI/DVT prophylaxis
[2016-07-10] MEDS ORDERED: LORazepam 2 MG/ML MDV IVPUSH PRN (21:06)
[2016-07-10] MEDS ORDERED: chlordiazePOXIDE 10 MG Cap PO PRN (21:10)
[2016-07-10] MEDS ORDERED: Sodium Chloride 0.9% 1,000 ML IV PRN (21:11)
[2016-07-10] MEDS: Pantoprazole 40 MG Vial IVPUSH SCH (22:01)
[2016-07-10] MEDS: Sodium Chloride 0.9% 1,000 ML IV SCH ×3 (22:01→23:33)
[2016-07-10] MEDS: Calcium Carbonate 500 MG Tab.Chew PO PRN (22:01)
[2016-07-10] MEDS: Dextrose 5%-0.9% NaCl 1,000 ML IV SCH (23:30)
[2016-07-11] MEDS ORDERED: Insulin Regular, Human 100 Units/ML 3 ML Vial SUBCUT ONE (06:00)
[2016-07-11] MEDS: Calcium Carbonate 500 MG Tab.Chew PO PRN (06:12)
[2016-07-11] MEDS: Dextrose 5%-0.9% NaCl 1,000 ML IV SCH (07:46)
--- NOTE | 2016-07-11 08:46 | CR ---
Chest: Portable view of the chest was obtained. Comparison: No previous chest x-ray. Heart size and mediastinum are normal. Lungs are clear. Bony structures are grossly intact. Impression: 1. Nothing acute is identified on portable chest x-ray. Diagnostic code #1
[2016-07-11] MEDS: Lisinopril 20 MG Tab PO SCH (08:54)
[2016-07-11] MEDS: Aspirin 81 MG Tab.EC PO SCH (08:54)
[2016-07-11] MEDS: Pantoprazole 40 MG Vial IVPUSH SCH ×2 (08:58→20:32)
[2016-07-11] MEDS ORDERED: Magnesium Sulfate/Water 2 GM in Premix Bag 1 BAG IV ONE (09:23)
--- NOTE | 2016-07-11 09:32 | PCM.PN ---
- General Info Date of Service: 07/11/16 Admission Dx/Problem (Free Text): Admission Diagnosis/Problem Admission Diagnosis/Problem Metabolic acidosis DKA [place] is seen today resting comfortably in bed. Denies further n/v. No c/o pain or discomfort. He is hungry, tolerating clear liquids thus far. No new concerns. Functional Status: Reports: tolerating diet, ambulating, urinating. Denies: new symptoms - Review of Systems General: Reports: No Symptoms HEENT: Reports: no symptoms Pulmonary: Reports: no symptoms Cardiovascular: Reports: No Symptoms Gastrointestinal: Reports: No symptoms Genitourinary: Reports: no symptoms Musculoskeletal: Reports: no symptoms Skin: Reports: no symptoms Neurological: Reports: No Symptoms Psychiatric: Reports: no symptoms - Patient Data Vitals - most recent: Last Vital Signs Temp 98.7 F 07/11/16 07:55 Pulse 83 07/11/16 07:55 Resp 18 07/11/16 07:55 BP 146/72 H 07/11/16 08:54 Pulse Ox 94 L 07/11/16 07:55 Weight - most recent: 185 lb I&O - last 24 hours: Intake & Output 07/10/16 07/11/16 07/11/16 22:59 06:59 14:59 Intake Total 0 2703 Balance 0 2703 Lab Results last 24 hrs: Laboratory Results - last 24 hr 07/10/16 07/10/16 07/10/16 Range/Units 19:41 19:45 19:45 WBC (4.23-9.07) K/mm3 RBC (4.63-6.08) M/mm3 Hgb (13.7-17.5) gm/L Hct (40.1-51.0) % MCV (79.0-92.2) fl MCH (25.7-32.2) pg MCHC (32.2-35.5) g/dl RDW Std Deviation (35.1-43.9) fL Plt Count (163-337) K/mm3 MPV (9.4-12.3) fl Neut % (Auto) (34.0-67.9) % Lymph % (Auto) (21.8-53.1) % Blount % (Auto) (5.3-12.2) % Eos % (Auto) (0.8-7.0) Baso % (Auto) (0.1-1.2) % Neut # (Auto) (1.78-5.38) K/mm3 Lymph # (Auto) (1.32-3.57) K/mm3 Blount # (Auto) (0.30-0.82) K/mm3 Eos # (Auto) (0.04-0.54) K/mm3 Baso # (Auto) (0.01-0.08) K/mm3 Sodium (136-145) mEq/L Potassium (3.5-5.1) mEq/L Chloride (98-107) mEq/L Carbon Dioxide (21-32) mEq/L Anion Gap (5-15) BUN (7-18) mg/dL Creatinine (0.7-1.3) mg/dL Est Cr Clr Drug Dosing mL/min Estimated GFR (MDRD) (>60) mL/min BUN/Creatinine Ratio (14-18) Glucose (74-106) mg/dL POC Glucose (70-105) mg/dL Hemoglobin A1c (4.50-6.20) % Lactic Acid (0.4-2.0) mmol/L Calcium (8.5-10.1) mg/dL Magnesium (1.8-2.4) mg/dl Total Bilirubin (0.2-1.0) mg/dL AST (15-37) U/L ALT (16-63) U/L Alkaline Phosphatase (46-116) U/L CK-MB (CK-2) 0.8 (0-3.6) ng/ml Troponin I < 0.017 (0.00-0.056) ng/mL C-Reactive Protein (<1.0) mg/dL Total Protein (6.4-8.2) g/dl Albumin (3.4-5.0) g/dl Globulin gm/dL Albumin/Globulin Ratio (1-2) Urine Color Light yellow (Yellow) Urine Appearance Clear (Clear) Urine pH 5.5 (5.0-8.0) Ur Specific Howe 1.025 (1.005-1.030) Urine Protein 1+ H (Negative) Urine Glucose (UA) 2+ H (Negative) Urine Ketones 3+ H (Negative) Urine Occult Blood Negative (Negative) Urine Nitrite Negative (Negative) Urine Bilirubin Negative (Negative) Urine Urobilinogen 0.2 (0.2-1.0) Ur Leukocyte Esterase Negative (Negative) Urine RBC Not seen (0-5) /hpf Urine WBC 0-5 (0-5) /hpf Ur Squamous Epith Cells 0-5 (0-5) /hpf Urine Bacteria Not seen (FEW) /hpf Urine Mucus Not seen (FEW) /hpf Urine Opiates Screen Presumptive positive H (NEGATIVE) Ur Buprenorphine Scrn Negative (NEGATIVE) Ur Oxycodone Screen Negative (NEGATIVE) Urine Methadone Screen Negative (NEGATIVE) Ur Propoxyphene Screen Negative (NEGATIVE) Ur Barbiturates Screen Negative (NEGATIVE) Ur Tricyclics Screen Negative (NEGATIVE) Ur Phencyclidine Scrn Negative (NEGATIVE) Ur Amphetamine Screen Negative (NEGATIVE) U Methamphetamines Scrn Negative (NEGATIVE) U Benzodiazepines Scrn Negative (NEGATIVE) U Cocaine Metab Screen Negative (NEGATIVE) U Marijuana (THC) Screen Negative (NEGATIVE) Mycoplasma pneumon IgM (NEGATIVE) 07/10/16 07/10/16 07/10/16 Range/Units 19:48 20:35 22:45 WBC (4.23-9.07) K/mm3 RBC (4.63-6.08) M/mm3 Hgb (13.7-17.5) gm/L Hct (40.1-51.0) % MCV (79.0-92.2) fl MCH (25.7-32.2) pg MCHC (32.2-35.5) g/dl RDW Std Deviation (35.1-43.9) fL Plt Count (163-337) K/mm3 MPV (9.4-12.3) fl Neut % (Auto) (34.0-67.9) % Lymph % (Auto) (21.8-53.1) % Blount % (Auto) (5.3-12.2) % Eos % (Auto) (0.8-7.0) Baso % (Auto) (0.1-1.2) % Neut # (Auto) (1.78-5.38) K/mm3 Lymph # (Auto) (1.32-3.57) K/mm3 Blount # (Auto) (0.30-0.82) K/mm3 Eos # (Auto) (0.04-0.54) K/mm3 Baso # (Auto) (0.01-0.08) K/mm3 Sodium 144 (136-145) mEq/L Potassium 5.8 H (3.5-5.1) mEq/L Chloride 105 (98-107) mEq/L Carbon Dioxide 10 L (21-32) mEq/L Anion Gap 34.8 H (5-15) BUN 22 H (7-18) mg/dL Creatinine 1.6 H (0.7-1.3) mg/dL Est Cr Clr Drug Dosing 56.23 mL/min Estimated GFR (MDRD) 48 (>60) mL/min BUN/Creatinine Ratio 13.8 L (14-18) Glucose 308 H (74-106) mg/dL POC Glucose 271 H 185 H (70-105) mg/dL Hemoglobin A1c (4.50-6.20) % Lactic Acid (0.4-2.0) mmol/L Calcium 8.5 (8.5-10.1) mg/dL Magnesium (1.8-2.4) mg/dl Total Bilirubin 0.5 (0.2-1.0) mg/dL AST 31 (15-37) U/L ALT 99 H (16-63) U/L Alkaline Phosphatase 75 (46-116) U/L CK-MB (CK-2) (0-3.6) ng/ml Troponin I (0.00-0.056) ng/mL C-Reactive Protein (<1.0) mg/dL Total Protein 7.0 (6.4-8.2) g/dl Albumin 4.4 (3.4-5.0) g/dl Globulin 2.6 gm/dL Albumin/Globulin Ratio 1.7 (1-2) Urine Color (Yellow) Urine Appearance (Clear) Urine pH (5.0-8.0) Ur Specific Howe (1.005-1.030) Urine Protein (Negative) Urine Glucose (UA) (Negative) Urine Ketones (Negative) Urine Occult Blood (Negative) Urine Nitrite (Negative) Urine Bilirubin (Negative) Urine Urobilinogen (0.2-1.0) Ur Leukocyte Esterase (Negative) Urine RBC (0-5) /hpf Urine WBC (0-5) /hpf Ur Squamous Epith Cells (0-5) /hpf Urine Bacteria (FEW) /hpf Urine Mucus (FEW) /hpf Urine Opiates Screen (NEGATIVE) Ur Buprenorphine Scrn (NEGATIVE) Ur Oxycodone Screen (NEGATIVE) Urine Methadone Screen (NEGATIVE) Ur Propoxyphene Screen (NEGATIVE) Ur Barbiturates Screen (NEGATIVE) Ur Tricyclics Screen (NEGATIVE) Ur Phencyclidine Scrn (NEGATIVE) Ur Amphetamine Screen (NEGATIVE) U Methamphetamines Scrn (NEGATIVE) U Benzodiazepines Scrn (NEGATIVE) U Cocaine Metab Screen (NEGATIVE) U Marijuana (THC) Screen (NEGATIVE) Mycoplasma pneumon IgM (NEGATIVE) 07/11/16 07/11/16 07/11/16 Range/Units 00:08 00:45 01:08 WBC (4.23-9.07) K/mm3 RBC (4.63-6.08) M/mm3 Hgb (13.7-17.5) gm/L Hct (40.1-51.0) % MCV (79.0-92.2) fl MCH (25.7-32.2) pg MCHC (32.2-35.5) g/dl RDW Std Deviation (35.1-43.9) fL Plt Count (163-337) K/mm3 MPV (9.4-12.3) fl Neut % (Auto) (34.0-67.9) % Lymph % (Auto) (21.8-53.1) % Blount % (Auto) (5.3-12.2) % Eos % (Auto) (0.8-7.0) Baso % (Auto) (0.1-1.2) % Neut # (Auto) (1.78-5.38) K/mm3 Lymph # (Auto) (1.32-3.57) K/mm3 Blount # (Auto) (0.30-0.82) K/mm3 Eos # (Auto) (0.04-0.54) K/mm3 Baso # (Auto) (0.01-0.08) K/mm3 Sodium 137 (136-145) mEq/L Potassium 4.6 (3.5-5.1) mEq/L Chloride 104 (98-107) mEq/L Carbon Dioxide 19 L (21-32) mEq/L Anion Gap 18.6 H (5-15) BUN 18 (7-18) mg/dL Creatinine 1.2 (0.7-1.3) mg/dL Est Cr Clr Drug Dosing 74.97 mL/min Estimated GFR (MDRD) > 60 (>60) mL/min BUN/Creatinine Ratio 15.0 (14-18) Glucose 262 H (74-106) mg/dL POC Glucose 205 H 235 H (70-105) mg/dL Hemoglobin A1c (4.50-6.20) % Lactic Acid (0.4-2.0) mmol/L Calcium 7.8 L (8.5-10.1) mg/dL Magnesium (1.8-2.4) mg/dl Total Bilirubin (0.2-1.0) mg/dL AST (15-37) U/L ALT (16-63) U/L Alkaline Phosphatase (46-116) U/L CK-MB (CK-2) (0-3.6) ng/ml Troponin I (0.00-0.056) ng/mL C-Reactive Protein (<1.0) mg/dL Total Protein (6.4-8.2) g/dl Albumin (3.4-5.0) g/dl Globulin gm/dL Albumin/Globulin Ratio (1-2) Urine Color (Yellow) Urine Appearance (Clear) Urine pH (5.0-8.0) Ur Specific Howe (1.005-1.030) Urine Protein (Negative) Urine Glucose (UA) (Negative) Urine Ketones (Negative) Urine Occult Blood (Negative) Urine Nitrite (Negative) Urine Bilirubin (Negative) Urine Urobilinogen (0.2-1.0) Ur Leukocyte Esterase (Negative) Urine RBC (0-5) /hpf Urine WBC (0-5) /hpf Ur Squamous Epith Cells (0-5) /hpf Urine Bacteria (FEW) /hpf Urine Mucus (FEW) /hpf Urine Opiates Screen (NEGATIVE) Ur Buprenorphine Scrn (NEGATIVE) Ur Oxycodone Screen (NEGATIVE) Urine Methadone Screen (NEGATIVE) Ur Propoxyphene Screen (NEGATIVE) Ur Barbiturates Screen (NEGATIVE) Ur Tricyclics Screen (NEGATIVE) Ur Phencyclidine Scrn (NEGATIVE) Ur Amphetamine Screen (NEGATIVE) U Methamphetamines Scrn (NEGATIVE) U Benzodiazepines Scrn (NEGATIVE) U Cocaine Metab Screen (NEGATIVE) U Marijuana (THC) Screen (NEGATIVE) Mycoplasma pneumon IgM (NEGATIVE) 03/31/17 03/31/17 03/31/17 Range/Units 01:59 03:07 04:04 WBC (4.23-9.07) K/mm3 RBC (4.63-6.08) M/mm3 Hgb (13.7-17.5) gm/L Hct (40.1-51.0) % MCV (79.0-92.2) fl MCH (25.7-32.2) pg MCHC (32.2-35.5) g/dl RDW Std Deviation (35.1-43.9) fL Plt Count (163-337) K/mm3 MPV (9.4-12.3) fl Neut % (Auto) (34.0-67.9) % Lymph % (Auto) (21.8-53.1) % Blount % (Auto) (5.3-12.2) % Eos % (Auto) (0.8-7.0) Baso % (Auto) (0.1-1.2) % Neut # (Auto) (1.78-5.38) K/mm3 Lymph # (Auto) (1.32-3.57) K/mm3 Blount # (Auto) (0.30-0.82) K/mm3 Eos # (Auto) (0.04-0.54) K/mm3 Baso # (Auto) (0.01-0.08) K/mm3 Sodium (136-145) mEq/L Potassium (3.5-5.1) mEq/L Chloride (98-107) mEq/L Carbon Dioxide (21-32) mEq/L Anion Gap (5-15) BUN (7-18) mg/dL Creatinine (0.7-1.3) mg/dL Est Cr Clr Drug Dosing mL/min Estimated GFR (MDRD) (>60) mL/min BUN/Creatinine Ratio (14-18) Glucose (74-106) mg/dL POC Glucose 235 H 225 H 235 H (70-105) mg/dL Hemoglobin A1c (4.50-6.20) % Lactic Acid (0.4-2.0) mmol/L Calcium (8.5-10.1) mg/dL Magnesium (1.8-2.4) mg/dl Total Bilirubin (0.2-1.0) mg/dL AST (15-37) U/L ALT (16-63) U/L Alkaline Phosphatase (46-116) U/L CK-MB (CK-2) (0-3.6) ng/ml Troponin I (0.00-0.056) ng/mL C-Reactive Protein (<1.0) mg/dL Total Protein (6.4-8.2) g/dl Albumin (3.4-5.0) g/dl Globulin gm/dL Albumin/Globulin Ratio (1-2) Urine Color (Yellow) Urine Appearance (Clear) Urine pH (5.0-8.0) Ur Specific Howe (1.005-1.030) Urine Protein (Negative) Urine Glucose (UA) (Negative) Urine Ketones (Negative) Urine Occult Blood (Negative) Urine Nitrite (Negative) Urine Bilirubin (Negative) Urine Urobilinogen (0.2-1.0) Ur Leukocyte Esterase (Negative) Urine RBC (0-5) /hpf Urine WBC (0-5) /hpf Ur Squamous Epith Cells (0-5) /hpf Urine Bacteria (FEW) /hpf Urine Mucus (FEW) /hpf Urine Opiates Screen (NEGATIVE) Ur Buprenorphine Scrn (NEGATIVE) Ur Oxycodone Screen (NEGATIVE) Urine Methadone Screen (NEGATIVE) Ur Propoxyphene Screen (NEGATIVE) Ur Barbiturates Screen (NEGATIVE) Ur Tricyclics Screen (NEGATIVE) Ur Phencyclidine Scrn (NEGATIVE) Ur Amphetamine Screen (NEGATIVE) U Methamphetamines Scrn (NEGATIVE) U Benzodiazepines Scrn (NEGATIVE) U Cocaine Metab Screen (NEGATIVE) U Marijuana (THC) Screen (NEGATIVE) Mycoplasma pneumon IgM (NEGATIVE) 07/11/16 07/11/16 07/11/16 Range/Units 04:25 04:25 04:25 WBC 13.74 H (4.23-9.07) K/mm3 RBC 4.22 L (4.63-6.08) M/mm3 Hgb 13.5 L (13.7-17.5) gm/L Hct 39.0 L (40.1-51.0) % MCV 92.4 H (79.0-92.2) fl MCH 32.0 (25.7-32.2) pg MCHC 34.6 (32.2-35.5) g/dl RDW Std Deviation 39.5 (35.1-43.9) fL Plt Count 263 (163-337) K/mm3 MPV 10.2 (9.4-12.3) fl Neut % (Auto) 77.2 H (34.0-67.9) % Lymph % (Auto) 13.8 L (21.8-53.1) % Blount % (Auto) 8.5 (5.3-12.2) % Eos % (Auto) 0.1 L (0.8-7.0) Baso % (Auto) 0.1 (0.1-1.2) % Neut # (Auto) 10.61 H (1.78-5.38) K/mm3 Lymph # (Auto) 1.89 (1.32-3.57) K/mm3 Blount # (Auto) 1.17 H (0.30-0.82) K/mm3 Eos # (Auto) 0.01 L (0.04-0.54) K/mm3 Baso # (Auto) 0.02 (0.01-0.08) K/mm3 Sodium (136-145) mEq/L Potassium (3.5-5.1) mEq/L Chloride (98-107) mEq/L Carbon Dioxide (21-32) mEq/L Anion Gap (5-15) BUN (7-18) mg/dL Creatinine (0.7-1.3) mg/dL Est Cr Clr Drug Dosing mL/min Estimated GFR (MDRD) (>60) mL/min BUN/Creatinine Ratio (14-18) Glucose (74-106) mg/dL POC Glucose (70-105) mg/dL Hemoglobin A1c 7.40 H (4.50-6.20) % Lactic Acid (0.4-2.0) mmol/L Calcium (8.5-10.1) mg/dL Magnesium (1.8-2.4) mg/dl Total Bilirubin (0.2-1.0) mg/dL AST (15-37) U/L ALT (16-63) U/L Alkaline Phosphatase (46-116) U/L CK-MB (CK-2) (0-3.6) ng/ml Troponin I (0.00-0.056) ng/mL C-Reactive Protein 2.0 H* (<1.0) mg/dL Total Protein (6.4-8.2) g/dl Albumin (3.4-5.0) g/dl Globulin gm/dL Albumin/Globulin Ratio (1-2) Urine Color (Yellow) Urine Appearance (Clear) Urine pH (5.0-8.0) Ur Specific Howe (1.005-1.030) Urine Protein (Negative) Urine Glucose (UA) (Negative) Urine Ketones (Negative) Urine Occult Blood (Negative) Urine Nitrite (Negative) Urine Bilirubin (Negative) Urine Urobilinogen (0.2-1.0) Ur Leukocyte Esterase (Negative) Urine RBC (0-5) /hpf Urine WBC (0-5) /hpf Ur Squamous Epith Cells (0-5) /hpf Urine Bacteria (FEW) /hpf Urine Mucus (FEW) /hpf Urine Opiates Screen (NEGATIVE) Ur Buprenorphine Scrn (NEGATIVE) Ur Oxycodone Screen (NEGATIVE) Urine Methadone Screen (NEGATIVE) Ur Propoxyphene Screen (NEGATIVE) Ur Barbiturates Screen (NEGATIVE) Ur Tricyclics Screen (NEGATIVE) Ur Phencyclidine Scrn (NEGATIVE) Ur Amphetamine Screen (NEGATIVE) U Methamphetamines Scrn (NEGATIVE) U Benzodiazepines Scrn (NEGATIVE) U Cocaine Metab Screen (NEGATIVE) U Marijuana (THC) Screen (NEGATIVE) Mycoplasma pneumon IgM Negative (NEGATIVE) 07/11/16 07/11/16 07/11/16 Range/Units 04:25 04:25 05:21 WBC (4.23-9.07) K/mm3 RBC (4.63-6.08) M/mm3 Hgb (13.7-17.5) gm/L Hct (40.1-51.0) % MCV (79.0-92.2) fl MCH (25.7-32.2) pg MCHC (32.2-35.5) g/dl RDW Std Deviation (35.1-43.9) fL Plt Count (163-337) K/mm3 MPV (9.4-12.3) fl Neut % (Auto) (34.0-67.9) % Lymph % (Auto) (21.8-53.1) % Blount % (Auto) (5.3-12.2) % Eos % (Auto) (0.8-7.0) Baso % (Auto) (0.1-1.2) % Neut # (Auto) (1.78-5.38) K/mm3 Lymph # (Auto) (1.32-3.57) K/mm3 Blount # (Auto) (0.30-0.82) K/mm3 Eos # (Auto) (0.04-0.54) K/mm3 Baso # (Auto) (0.01-0.08) K/mm3 Sodium 136 (136-145) mEq/L Potassium 4.3 (3.5-5.1) mEq/L Chloride 104 (98-107) mEq/L Carbon Dioxide 21 (21-32) mEq/L Anion Gap 15.3 H (5-15) BUN 17 (7-18) mg/dL Creatinine 1.2 (0.7-1.3) mg/dL Est Cr Clr Drug Dosing 74.97 mL/min Estimated GFR (MDRD) > 60 (>60) mL/min BUN/Creatinine Ratio 14.2 (14-18) Glucose 249 H (74-106) mg/dL POC Glucose 236 H (70-105) mg/dL Hemoglobin A1c (4.50-6.20) % Lactic Acid 1.1 (0.4-2.0) mmol/L Calcium 7.9 L (8.5-10.1) mg/dL Magnesium (1.8-2.4) mg/dl Total Bilirubin (0.2-1.0) mg/dL AST (15-37) U/L ALT (16-63) U/L Alkaline Phosphatase (46-116) U/L CK-MB (CK-2) (0-3.6) ng/ml Troponin I (0.00-0.056) ng/mL C-Reactive Protein (<1.0) mg/dL Total Protein (6.4-8.2) g/dl Albumin (3.4-5.0) g/dl Globulin gm/dL Albumin/Globulin Ratio (1-2) Urine Color (Yellow) Urine Appearance (Clear) Urine pH (5.0-8.0) Ur Specific Howe (1.005-1.030) Urine Protein (Negative) Urine Glucose (UA) (Negative) Urine Ketones (Negative) Urine Occult Blood (Negative) Urine Nitrite (Negative) Urine Bilirubin (Negative) Urine Urobilinogen (0.2-1.0) Ur Leukocyte Esterase (Negative) Urine RBC (0-5) /hpf Urine WBC (0-5) /hpf Ur Squamous Epith Cells (0-5) /hpf Urine Bacteria (FEW) /hpf Urine Mucus (FEW) /hpf Urine Opiates Screen (NEGATIVE) Ur Buprenorphine Scrn (NEGATIVE) Ur Oxycodone Screen (NEGATIVE) Urine Methadone Screen (NEGATIVE) Ur Propoxyphene Screen (NEGATIVE) Ur Barbiturates Screen (NEGATIVE) Ur Tricyclics Screen (NEGATIVE) Ur Phencyclidine Scrn (NEGATIVE) Ur Amphetamine Screen (NEGATIVE) U Methamphetamines Scrn (NEGATIVE) U Benzodiazepines Scrn (NEGATIVE) U Cocaine Metab Screen (NEGATIVE) U Marijuana (THC) Screen (NEGATIVE) Mycoplasma pneumon IgM (NEGATIVE) 07/11/16 07/11/16 07/11/16 Range/Units 06:07 06:56 07:54 WBC (4.23-9.07) K/mm3 RBC (4.63-6.08) M/mm3 Hgb (13.7-17.5) gm/L Hct (40.1-51.0) % MCV (79.0-92.2) fl MCH (25.7-32.2) pg MCHC (32.2-35.5) g/dl RDW Std Deviation (35.1-43.9) fL Plt Count (163-337) K/mm3 MPV (9.4-12.3) fl Neut % (Auto) (34.0-67.9) % Lymph % (Auto) (21.8-53.1) % Blount % (Auto) (5.3-12.2) % Eos % (Auto) (0.8-7.0) Baso % (Auto) (0.1-1.2) % Neut # (Auto) (1.78-5.38) K/mm3 Lymph # (Auto) (1.32-3.57) K/mm3 Blount # (Auto) (0.30-0.82) K/mm3 Eos # (Auto) (0.04-0.54) K/mm3 Baso # (Auto) (0.01-0.08) K/mm3 Sodium (136-145) mEq/L Potassium (3.5-5.1) mEq/L Chloride (98-107) mEq/L Carbon Dioxide (21-32) mEq/L Anion Gap (5-15) BUN (7-18) mg/dL Creatinine (0.7-1.3) mg/dL Est Cr Clr Drug Dosing mL/min Estimated GFR (MDRD) (>60) mL/min BUN/Creatinine Ratio (14-18) Glucose (74-106) mg/dL POC Glucose 243 H 229 H 210 H (70-105) mg/dL Hemoglobin A1c (4.50-6.20) % Lactic Acid (0.4-2.0) mmol/L Calcium (8.5-10.1) mg/dL Magnesium (1.8-2.4) mg/dl Total Bilirubin (0.2-1.0) mg/dL AST (15-37) U/L ALT (16-63) U/L Alkaline Phosphatase (46-116) U/L CK-MB (CK-2) (0-3.6) ng/ml Troponin I (0.00-0.056) ng/mL C-Reactive Protein (<1.0) mg/dL Total Protein (6.4-8.2) g/dl Albumin (3.4-5.0) g/dl Globulin gm/dL Albumin/Globulin Ratio (1-2) Urine Color (Yellow) Urine Appearance (Clear) Urine pH (5.0-8.0) Ur Specific Howe (1.005-1.030) Urine Protein (Negative) Urine Glucose (UA) (Negative) Urine Ketones (Negative) Urine Occult Blood (Negative) Urine Nitrite (Negative) Urine Bilirubin (Negative) Urine Urobilinogen (0.2-1.0) Ur Leukocyte Esterase (Negative) Urine RBC (0-5) /hpf Urine WBC (0-5) /hpf Ur Squamous Epith Cells (0-5) /hpf Urine Bacteria (FEW) /hpf Urine Mucus (FEW) /hpf Urine Opiates Screen (NEGATIVE) Ur Buprenorphine Scrn (NEGATIVE) Ur Oxycodone Screen (NEGATIVE) Urine Methadone Screen (NEGATIVE) Ur Propoxyphene Screen (NEGATIVE) Ur Barbiturates Screen (NEGATIVE) Ur Tricyclics Screen (NEGATIVE) Ur Phencyclidine Scrn (NEGATIVE) Ur Amphetamine Screen (NEGATIVE) U Methamphetamines Scrn (NEGATIVE) U Benzodiazepines Scrn (NEGATIVE) U Cocaine Metab Screen (NEGATIVE) U Marijuana (THC) Screen (NEGATIVE) Mycoplasma pneumon IgM (NEGATIVE) 07/11/16 07/11/16 Range/Units 08:40 09:06 WBC (4.23-9.07) K/mm3 RBC (4.63-6.08) M/mm3 Hgb (13.7-17.5) gm/L Hct (40.1-51.0) % MCV (79.0-92.2) fl MCH (25.7-32.2) pg MCHC (32.2-35.5) g/dl RDW Std Deviation (35.1-43.9) fL Plt Count (163-337) K/mm3 MPV (9.4-12.3) fl Neut % (Auto) (34.0-67.9) % Lymph % (Auto) (21.8-53.1) % Blount % (Auto) (5.3-12.2) % Eos % (Auto) (0.8-7.0) Baso % (Auto) (0.1-1.2) % Neut # (Auto) (1.78-5.38) K/mm3 Lymph # (Auto) (1.32-3.57) K/mm3 Blount # (Auto) (0.30-0.82) K/mm3 Eos # (Auto) (0.04-0.54) K/mm3 Baso # (Auto) (0.01-0.08) K/mm3 Sodium 136 (136-145) mEq/L Potassium 3.9 (3.5-5.1) mEq/L Chloride 105 (98-107) mEq/L Carbon Dioxide 22 (21-32) mEq/L Anion Gap 12.9 (5-15) BUN 18 (7-18) mg/dL Creatinine 1.1 (0.7-1.3) mg/dL Est Cr Clr Drug Dosing 81.79 mL/min Estimated GFR (MDRD) > 60 (>60) mL/min BUN/Creatinine Ratio 16.4 (14-18) Glucose 228 H (74-106) mg/dL POC Glucose 207 H (70-105) mg/dL Hemoglobin A1c (4.50-6.20) % Lactic Acid (0.4-2.0) mmol/L Calcium 8.0 L (8.5-10.1) mg/dL Magnesium 1.5 L (1.8-2.4) mg/dl Total Bilirubin (0.2-1.0) mg/dL AST (15-37) U/L ALT (16-63) U/L Alkaline Phosphatase (46-116) U/L CK-MB (CK-2) (0-3.6) ng/ml Troponin I (0.00-0.056) ng/mL C-Reactive Protein (<1.0) mg/dL Total Protein (6.4-8.2) g/dl Albumin (3.4-5.0) g/dl Globulin gm/dL Albumin/Globulin Ratio (1-2) Urine Color (Yellow) Urine Appearance (Clear) Urine pH (5.0-8.0) Ur Specific Howe (1.005-1.030) Urine Protein (Negative) Urine Glucose (UA) (Negative) Urine Ketones (Negative) Urine Occult Blood (Negative) Urine Nitrite (Negative) Urine Bilirubin (Negative) Urine Urobilinogen (0.2-1.0) Ur Leukocyte Esterase (Negative) Urine RBC (0-5) /hpf Urine WBC (0-5) /hpf Ur Squamous Epith Cells (0-5) /hpf Urine Bacteria (FEW) /hpf Urine Mucus (FEW) /hpf Urine Opiates Screen (NEGATIVE) Ur Buprenorphine Scrn (NEGATIVE) Ur Oxycodone Screen (NEGATIVE) Urine Methadone Screen (NEGATIVE) Ur Propoxyphene Screen (NEGATIVE) Ur Barbiturates Screen (NEGATIVE) Ur Tricyclics Screen (NEGATIVE) Ur Phencyclidine Scrn (NEGATIVE) Ur Amphetamine Screen (NEGATIVE) U Methamphetamines Scrn (NEGATIVE) U Benzodiazepines Scrn (NEGATIVE) U Cocaine Metab Screen (NEGATIVE) U Marijuana (THC) Screen (NEGATIVE) Mycoplasma pneumon IgM (NEGATIVE) Med Orders - Current: Current Medications Acetaminophen (Tylenol) 650 mg PO Q6H PRN PRN Reason: Fever Aspirin (Halfprin) 81 mg PO DAILY [facility] Last Admin: 07/11/16 08:54 Dose: 81 mg Calcium Carbonate/Glycine (Tums) 1,000 mg PO Q2HR PRN PRN Reason: Indigestion Last Admin: 07/11/16 06:12 Dose: 1,000 mg Chlordiazepoxide HCl (Librium) 10 mg PO BID PRN PRN Reason: Anxiety Last Admin: 07/10/16 22:02 Dose: 10 mg Nitroglycerin/Dextrose (Nitroglycerin 25 Mg/D5w 250 Ml) 25 mg in 250 mls @ 6 mls/hr IV TITRATE [facility] PRN Reason: 10 MCG/MIN Last Admin: 07/10/16 16:15 Dose: 10 mcg/min, 6 mls/hr Insulin Human Regular 100 unit (/ Sodium Chloride) 100 mls @ 0.5 mls/hr IV TITRATE [facility]ERNER; 0.5 UNITS/HR PRN Reason: Protocol Last Titration: 07/11/16 01:10 Dose: 2.5 units/hr, 2.5 mls/hr Promethazine HCl 12.5 mg/ (Sodium Chloride) 50.5 mls @ 100 mls/hr IV Q6H PRN PRN Reason: Nausea/Vomiting Sodium Chloride (Normal Saline) 1,000 mls @ 0 mls/hr IV ASDIRECTED PRN PRN Reason: Hypotension Dextrose/Sodium Chloride (Dextrose 5%-Normal Saline) 1,000 mls @ 125 mls/hr IV ASDIRECTED [facility] Last Admin: 07/11/16 07:46 Dose: 125 mls/hr Magnesium Sulfate 2 gm/ Premix 50 mls @ 25 mls/hr IV ONETIME ONE Stop: 07/11/16 11:22 Lisinopril (Prinivil) 20 mg PO DAILY [facility] Last Admin: 07/11/16 08:54 Dose: 20 mg Lorazepam (Ativan) 1 mg IVPUSH Q8H PRN PRN Reason: Anxiety Ondansetron HCl (Zofran) 4 mg IVPUSH Q8H PRN PRN Reason: Nausea/Vomiting Pantoprazole Sodium (Protonix Iv) 40 mg IVPUSH Q12H [facility] Last Admin: 07/11/16 08:58 Dose: 40 mg Simvastatin (Zocor) 10 mg PO BEDTIME [facility] Temazepam (Restoril) 30 mg PO BEDTIME PRN PRN Reason: Insomnia Discontinued Medications Aspirin (Aspirin) Confirm Administered Dose 324 mg .ROUTE .STK-MED ONE Stop: 07/10/16 15:57 Last Admin: 07/10/16 16:42 Dose: Not Given Hydromorphone HCl (Dilaudid) 1 mg IVPUSH ONETIME ONE Stop: 07/10/16 15:59 Last Admin: 07/10/16 16:06 Dose: 1 mg Hyoscyamine (Hyomax-Sl) 0.125 mg SL ONETIME ONE Stop: 07/10/16 16:04 Last Admin: 07/10/16 16:08 Dose: 0.125 mg Sodium Chloride (Normal Saline) 1,000 mls @ 150 mls/hr IV ASDIRECTED [facility] Last Admin: 07/10/16 16:17 Dose: 150 mls/hr Sodium Chloride (Normal Saline) 1,000 mls @ 999 mls/hr IV ONETIME ONE Stop: 07/10/16 18:45 Last Admin: 07/10/16 17:55 Dose: 999 mls/hr Sodium Chloride (Normal Saline) 1,000 mls @ 999 mls/hr IV ONETIME ONE Stop: 07/10/16 19:37 Last Admin: 07/10/16 20:55 Dose: 999 mls/hr Sodium Chloride (Normal Saline) 1,000 mls @ 999 mls/hr IV ONETIME ONE Stop: 07/10/16 19:46 Last Admin: 07/10/16 19:36 Dose: 999 mls/hr Sodium Chloride (Normal Saline) 1,000 mls @ 999 mls/hr IV Q1H [facility] Stop: 07/10/16 23:59 Last Admin: 07/10/16 23:33 Dose: Not Given Insulin Human Regular (Humulin R) 10 unit SUBCUT ONETIME ONE PRN Reason: Protocol Stop: 07/11/16 06:01 Insulin Human Regular (Humulin R) Confirm Administered Dose 300 unit .ROUTE .STK -MED ONE Stop: 07/10/16 18:02 Last Admin: 07/10/16 18:33 Dose: Not Given Insulin Human Regular (Humulin R) 10 unit SUBCUT ONETIME ONE PRN Reason: Protocol Stop: 07/10/16 18:01 Last Admin: 07/10/16 18:20 Dose: 10 units Metoclopramide HCl (Reglan) 10 mg IVPUSH ONETIME ONE Stop: 07/10/16 16:00 Last Admin: 07/10/16 16:04 Dose: 10 mg Nitroglycerin (Nitrostat) Confirm Administered Dose 0.4 mg .ROUTE .STK-MED ONE Stop: 07/10/16 15:58 Last Admin: 07/10/16 16:42 Dose: Not Given Ondansetron HCl (Zofran) 4 mg IVPUSH ONETIME ONE Stop: 07/10/16 17:51 Last Admin: 07/10/16 17:55 Dose: 4 mg - Exam Quality Assessment: DVT prophylaxis General: alert, oriented, cooperative, no acute distress HEENT: Pupils equal, Pupils reactive, EOMI, Mucous membr. moist/pink Neck: supple Lungs: Clear to auscultation, Normal respiratory effort Cardiovascular: Regular Rate, Regular Rhythm Abdomen: bowel sounds present, soft, no tenderness, no distension (Male) Exam: Deferred Extremities: no edema, no calf tenderness Peripheral Pulses: 2+: dorsalis pedis (L), dorsalis pedis (R) Skin: warm, dry, intact Neurological: no new focal deficit Psy/Mental Status: alert, normal affect, normal mood - Problem List & Annotations (1) Diabetic ketoacidosis associated with type 1 diabetes mellitus SNOMED Code(s): 692798544, 999512696 Code(s): E10.10 - TYPE 1 DIABETES MELLITUS WITH KETOACIDOSIS WITHOUT COMA Status: Acute Priority: High Current Visit: Yes Qualifiers: Diabetes mellitus complication detail: without coma Qualified Code(s): E10.10 - Type 1 diabetes mellitus with ketoacidosis without coma (2) Intractable nausea and vomiting SNOMED Code(s): 903489686, 524946748 Code(s): R11.2 - NAUSEA WITH VOMITING, UNSPECIFIED Status: Acute Priority : High Current Visit: Yes Qualifiers: Vomiting type: unspecified Qualified Code(s): R11.2 - Nausea with vomiting , unspecified (3) Alcohol intoxication SNOMED Code(s): 48189668 Code(s): F10.129 - ALCOHOL ABUSE WITH INTOXICATION, UNSPECIFIED Status: Acute Priority: High Current Visit: Yes Qualifiers: Complication of substance-induced condition: uncomplicated Qualified Code(s ): F10.120 - Alcohol abuse with intoxication, uncomplicated (4) Alcoholic ketosis SNOMED Code(s): 48656769 Code(s): E87.2 - ACIDOSIS Status: Acute Priority: High Current Visit: Yes (5) Chest pain in adult SNOMED Code(s): 63654278 Code(s): R07.9 - CHEST PAIN, UNSPECIFIED Status: Resolved Priority: Medium Current Visit: Yes - Problem List Review Problem List Initiated/Reviewed/Updated: Yes - My Orders Last 24 Hours: My Active Orders 07/11/16 09:16 Antiembolic Devices [RC] PER UNIT ROUTINE SCD [Sequential Compression Device] [OM.PC] Routine 07/11/16 09:23 Magnesium Sulfate/Water [Magnesium Sulfate 2 GM in Water 50 ML] 2 gm Premix Bag 1 bag IV ONETIME 07/11/16 12:30 MAGNESIUM [CHEM] Routine - Plan Plan:: Impression/Plan: ETOH binge drinking on the day of presentation; level 0.116 Does not appear to be chronic; would suggest assessment CKD, stage III, acute on chronic; [id number]--resolved after appropriate hydration History of GERD--chronic and recurrent/daily Would benefit from OP evaluation Chest pain, risk factors for CAD, ECG/cardiac enzymes were negative Will need stress test -Repeat EKG unchanged DKA, mildly elevated BS with significant AG Aggressive hydration DKA protocol Diabetic teaching/education before DC as well as as outpatient AG closed- advancing diet today Elevated Lactic acid--resolving Follow labs daily GI/DVT prophylaxis CM/SW for help with DC planning- Likely DC tomorrow AM if stable Full Code
[2016-07-11] MEDS: Sodium Chloride 0.9% 1,000 ML IV SCH ×4 (09:48→19:24)
[2016-07-11] MEDS: Insulin Aspart 100 Units/ML 3 ML Pen SUBCUT SCH ×4 (11:05→22:44)
[2016-07-11] MEDS ORDERED: Diphtheria,Pertussis(Acell),Tetanus Vaccine 0.5 ML SDV inactive IM ONE (12:30)
[2016-07-11] MEDS ORDERED: Insulin Detemir 100 Units/ML 3 ML Pen SUBCUT ONE (20:33)
[2016-07-11] MEDS ORDERED: Simvastatin 10 MG Tab PO SCH (21:00)
[2016-07-12] MEDS: Sodium Chloride 0.9% 1,000 ML IV SCH (01:50)
[2016-07-12] MEDS: Insulin Aspart 100 Units/ML 3 ML Pen SUBCUT SCH (07:02)
[2016-07-12] MEDS: Lisinopril 20 MG Tab PO SCH (09:09)
[2016-07-12] MEDS: Aspirin 81 MG Tab.EC PO SCH (09:09)
[2016-07-12] MEDS: Pantoprazole 40 MG Vial IVPUSH SCH (09:10)
--- NOTE | 2016-07-12 09:36 | CR ---
Chest: 2 views of the chest were obtained. Comparison: Previous chest x-ray of 07/10/16. Heart size and mediastinum are within normal limits. Lungs are clear. Bony structures are unremarkable. Impression: 1. Nothing acute is identified on 2 view chest x-ray. Diagnostic code #1
[2016-07-12 11:40] VITALS: BP 163/91
--- NOTE | 2016-07-12 14:19 | PCM.DCSUM1 ---
Discharge Summary - Hospital Course Free Text/Narrative:: 41 year old male with n/v and dehydration had a significant anion gap, diabetic and alcoholic ketoacidosis. The DKA protocol was followed, the patient was admitted to the ICU. Diabetic education and teaching was provided. The patient has a insulin pump which is not currently working. he will see Nahomi Salvador next week. A work excuse has been provide, the patient may return to work on Thursday night, 07/13/16. Primary Dx DKA Alcoholic ketoacidosis Intractible vomiting Dehydration Condition Stable Activity As tolerated Diet 1999 ADA Medication Levemir 30 U SQ BID with meals (If insulin pump is not working) Follow Up Nahomi Avery, 1-[address] Salvador 2-4 weeks. Return to Work, 07/13/16 Work excuse has been provided for 07/10-07/11/16. - Discharge Data Discharge Date: 07/12/16 Discharge Disposition: Home, Self-Care 01 Condition: Good - Patient Summary/Data Consults: Consultations 07/10/16 21:00 Consult to Cigar Head Puncher [CONS] Routine 07/11/16 09:00 Consult to Diabetic Nurse Specialist [CONS] Routine 07/11/16 10:00 Consult to Shelf Stocker [Consult to Diabetic Nurse Specialist] [CONS] Routine - Patient Instructions Diet: Diabetic Diet Activity: As Tolerated, Full Weight Bearing Driving: May Drive Today Showering/Bathing: May Shower Notify Provider of: Fever, Increased Pain, Nausea and/or Vomiting - Discharge Plan Home Medications: Home Meds Aspirin [Ecotrin] 81 mg PO DAILY 07/10/16 [History] Humalog Pump 0 units INJECT 07/10/16 [History] Lisinopril 20 mg PO DAILY 07/10/16 [History] Omeprazole 20 mg PO DAILY 07/10/16 [History] atorvaSTATin [Lipitor] 10 mg PO DAILY 07/10/16 [History] Patient Handouts: Smoking Cessation, Tips for Success, [id number], Diabetic Ketoacidosis, Insulin Detemir injection, Insulin Pumps, How to Avoid Diabetes Problems Forms: ED Department Discharge Referrals: Vikram Salvador MD [Primary Care Provider] - - General Info Date of Service: 08/10/16 Functional Status: Reports: tolerating diet, ambulating, urinating - Review of Systems General: Reports: No Symptoms HEENT: Reports: no symptoms Pulmonary: Reports: no symptoms Cardiovascular: Reports: No Symptoms Gastrointestinal: Reports: No symptoms Genitourinary: Reports: no symptoms Musculoskeletal: Reports: no symptoms Skin: Reports: no symptoms Neurological: Reports: No Symptoms Psychiatric: Reports: no symptoms - Patient Data Vitals - Most Recent: Last Vital Signs Temp 36.4 C 07/12/16 11:15 Pulse 75 07/12/16 11:15 Resp 18 07/12/16 11:15 BP 163/91 H 07/12/16 11:15 Pulse Ox 98 07/12/16 11:15 Weight - Most Recent: 87.271 kg I&O - Last 24 hours: Intake & Output 07/11/16 07/12/16 07/12/16 22:59 06:59 14:59 Intake Total 1487 4381 1130 Balance 1487 4381 1130 Lab Results - Last 24 hrs: Laboratory Results - last 24 hr 07/11/16 07/11/16 07/11/16 Range/Units 16:52 16:55 20:30 Sodium 136 134 L (136-145) mEq/L Potassium 4.6 4.0 (3.5-5.1) mEq/L Chloride 102 103 (98-107) mEq/L Carbon Dioxide 19 L 23 (21-32) mEq/L Anion Gap 19.6 H 12.0 (5-15) BUN 16 14 (7-18) mg/dL Creatinine 1.1 1.1 (0.7-1.3) mg/dL Est Cr Clr Drug Dosing 81.79 81.79 mL/min Estimated GFR (MDRD) > 60 > 60 (>60) mL/min BUN/Creatinine Ratio 14.5 12.7 L (14-18) Glucose 338 H 390 H (74-106) mg/dL POC Glucose 295 H (70-105) mg/dL Calcium 8.0 L 7.5 L (8.5-10.1) mg/dL Total Bilirubin 1.2 H 0.8 (0.2-1.0) mg/dL AST 28 27 (15-37) U/L ALT 69 H 64 H (16-63) U/L Alkaline Phosphatase 66 58 (46-116) U/L Total Protein 5.9 L 5.5 L (6.4-8.2) g/dl Albumin 3.4 3.2 L (3.4-5.0) g/dl Globulin 2.5 2.3 gm/dL Albumin/Globulin Ratio 1.4 1.4 (1-2) Triglycerides (<150) mg/dL Cholesterol (<200) mg/dL LDL Cholesterol Direct (<100) mg/dL HDL Cholesterol (40-59) mg/dL 07/11/16 07/11/16 07/12/16 Range/Units 20:30 22:43 06:46 Sodium (136-145) mEq/L Potassium (3.5-5.1) mEq/L Chloride (98-107) mEq/L Carbon Dioxide (21-32) mEq/L Anion Gap (5-15) BUN (7-18) mg/dL Creatinine (0.7-1.3) mg/dL Est Cr Clr Drug Dosing mL/min Estimated GFR (MDRD) (>60) mL/min BUN/Creatinine Ratio (14-18) Glucose (74-106) mg/dL POC Glucose 353 H 281 H 212 H (70-105) mg/dL Calcium (8.5-10.1) mg/dL Total Bilirubin (0.2-1.0) mg/dL AST (15-37) U/L ALT (16-63) U/L Alkaline Phosphatase (46-116) U/L Total Protein (6.4-8.2) g/dl Albumin (3.4-5.0) g/dl Globulin gm/dL Albumin/Globulin Ratio (1-2) Triglycerides (<150) mg/dL Cholesterol (<200) mg/dL LDL Cholesterol Direct (<100) mg/dL HDL Cholesterol (40-59) mg/dL 07/12/16 Range/Units 06:48 Sodium 139 (136-145) mEq/L Potassium 4.0 (3.5-5.1) mEq/L Chloride 105 (98-107) mEq/L Carbon Dioxide 24 (21-32) mEq/L Anion Gap 14.0 (5-15) BUN 11 (7-18) mg/dL Creatinine 1.0 (0.7-1.3) mg/dL Est Cr Clr Drug Dosing 89.97 mL/min Estimated GFR (MDRD) > 60 (>60) mL/min BUN/Creatinine Ratio 11.0 L (14-18) Glucose 227 H (74-106) mg/dL POC Glucose (70-105) mg/dL Calcium 7.8 L (8.5-10.1) mg/dL Total Bilirubin (0.2-1.0) mg/dL AST (15-37) U/L ALT (16-63) U/L Alkaline Phosphatase (46-116) U/L Total Protein (6.4-8.2) g/dl Albumin (3.4-5.0) g/dl Globulin gm/dL Albumin/Globulin Ratio (1-2) Triglycerides 152 H (<150) mg/dL Cholesterol 122 (<200) mg/dL LDL Cholesterol Direct 58 (<100) mg/dL HDL Cholesterol 41.0 (40-59) mg/dL Med Orders - Current: Current Medications Discontinued Medications Acetaminophen (Tylenol) 650 mg PO Q6H PRN PRN Reason: Fever Aspirin (Aspirin) Confirm Administered Dose 324 mg .ROUTE .STK-MED ONE Stop: 07/10/16 15:57 Last Admin: 07/10/16 16:42 Dose: Not Given Aspirin (Halfprin) 81 mg PO DAILY [facility] Last Admin: 07/12/16 09:09 Dose: 81 mg Calcium Carbonate/Glycine (Tums) 1,000 mg PO Q2HR PRN PRN Reason: Indigestion Last Admin: 07/11/16 06:12 Dose: 1,000 mg Chlordiazepoxide HCl (Librium) 10 mg PO BID PRN PRN Reason: Anxiety Last Admin: 07/10/16 22:02 Dose: 10 mg Diphtheria/Tetanus/Acell Pertussis (Boostrix) 0.5 ml IM .ONCE ONE Stop: 07/11/16 12:31 Last Admin: 07/11/16 12:27 Dose: 0.5 ml Hydromorphone HCl (Dilaudid) 1 mg IVPUSH ONETIME ONE Stop: 07/10/16 15:59 Last Admin: 07/10/16 16:06 Dose: 1 mg Hyoscyamine (Hyomax-Sl) 0.125 mg SL ONETIME ONE Stop: 07/10/16 16:04 Last Admin: 07/10/16 16:08 Dose: 0.125 mg Sodium Chloride (Normal Saline) 1,000 mls @ 150 mls/hr IV ASDIRECTED [facility] Last Admin: 07/10/16 16:17 Dose: 150 mls/hr Nitroglycerin/Dextrose (Nitroglycerin 25 Mg/D5w 250 Ml) 25 mg in 250 mls @ 6 mls/hr IV TITRATE WERNER PRN Reason: 10 MCG/MIN Last Admin: 07/10/16 16:15 Dose: 10 mcg/min, 6 mls/hr Sodium Chloride (Normal Saline) 1,000 mls @ 999 mls/hr IV ONETIME ONE Stop: 07/10/16 18:45 Last Admin: 07/10/16 17:55 Dose: 999 mls/hr Sodium Chloride (Normal Saline) 1,000 mls @ 999 mls/hr IV ONETIME ONE Stop: 07/10/16 19:37 Last Admin: 07/10/16 20:55 Dose: 999 mls/hr Sodium Chloride (Normal Saline) 1,000 mls @ 999 mls/hr IV ONETIME ONE Stop: 07/10/16 19:46 Last Admin: 07/10/16 19:36 Dose: 999 mls/hr Insulin Human Regular 100 unit (/ Sodium Chloride) 100 mls @ 0.5 mls/hr IV TITRATE WERNER; 0.5 UNITS/HR PRN Reason: Protocol Last Titration: 07/11/16 01:10 Dose: 2.5 units/hr, 2.5 mls/hr Sodium Chloride (Normal Saline) 1,000 mls @ 999 mls/hr IV Q1H WERNER Stop: 07/10/16 23:59 Last Admin: 07/10/16 23:33 Dose: Not Given Promethazine HCl 12.5 mg/ (Sodium Chloride) 50.5 mls @ 100 mls/hr IV Q6H PRN PRN Reason: Nausea/Vomiting Sodium Chloride (Normal Saline) 1,000 mls @ 0 mls/hr IV ASDIRECTED PRN PRN Reason: Hypotension Dextrose/Sodium Chloride (Dextrose 5%-Normal Saline) 1,000 mls @ 125 mls/hr IV ASDIRECTED WERNER Last Admin: 07/11/16 07:46 Dose: 125 mls/hr Magnesium Sulfate 2 gm/ Premix 50 mls @ 25 mls/hr IV ONETIME ONE Stop: 07/11/16 11:22 Last Admin: 07/11/16 09:48 Dose: 25 mls/hr Sodium Chloride (Normal Saline) 1,000 mls @ 125 mls/hr IV ASDIRECTED [facility] Last Admin: 07/12/16 01:50 Dose: 125 mls/hr Sodium Chloride (Normal Saline) 1,000 mls @ 999 mls/hr IV ASDIRECTED [facility] Stop: 07/12/16 18:39 Last Admin: 07/11/16 19:24 Dose: 999 mls/hr Insulin Aspart (Novolog) 0 unit SUBCUT QIDACANDBED [facility] PRN Reason: Protocol Last Admin: 07/12/16 07:02 Dose: 6 units Insulin Detemir (Levemir) 5 unit SUBCUT NOW ONE Stop: 07/11/16 20:34 Last Admin: 07/11/16 21:01 Dose: 5 units Insulin Human Regular (Humulin R) 10 unit SUBCUT ONETIME ONE PRN Reason: Protocol Stop: 07/11/16 06:01 Insulin Human Regular (Humulin R) Confirm Administered Dose 300 unit .ROUTE .STK -MED ONE Stop: 07/10/16 18:02 Last Admin: 07/10/16 18:33 Dose: Not Given Insulin Human Regular (Humulin R) 10 unit SUBCUT ONETIME ONE PRN Reason: Protocol Stop: 07/10/16 18:01 Last Admin: 07/10/16 18:20 Dose: 10 units Lisinopril (Prinivil) 20 mg PO DAILY [facility] Last Admin: 07/12/16 09:09 Dose: 20 mg Lorazepam (Ativan) 1 mg IVPUSH Q8H PRN PRN Reason: Anxiety Metoclopramide HCl (Reglan) 10 mg IVPUSH ONETIME ONE Stop: 07/10/16 16:00 Last Admin: 07/10/16 16:04 Dose: 10 mg Nitroglycerin (Nitrostat) Confirm Administered Dose 0.4 mg .ROUTE .STK-MED ONE Stop: 07/10/16 15:58 Last Admin: 07/10/16 16:42 Dose: Not Given Ondansetron HCl (Zofran) 4 mg IVPUSH ONETIME ONE Stop: 07/10/16 17:51 Last Admin: 07/10/16 17:55 Dose: 4 mg Ondansetron HCl (Zofran) 4 mg IVPUSH Q8H PRN PRN Reason: Nausea/Vomiting Pantoprazole Sodium (Protonix Iv) 40 mg IVPUSH Q12H [facility] Last Admin: 07/12/16 09:10 Dose: 40 mg Simvastatin (Zocor) 10 mg PO BEDTIME [facility] Last Admin: 07/11/16 20:24 Dose: 10 mg Temazepam (Restoril) 30 mg PO BEDTIME PRN PRN Reason: Insomnia - Exam Quality Assessment: Reports: DVT prophylaxis General: Reports: alert, oriented, cooperative, no acute distress HEENT: Reports: Pupils equal, Pupils reactive, EOMI Neck: Reports: supple, trachea midline, no JVD Lungs: Reports: Normal respiratory effort Cardiovascular: Reports: Regular Rate, Regular Rhythm Abdomen: Reports: bowel sounds present, soft, no tenderness, no distension (Male) Exam: Deferred Rectal (Males) Exam: Deferred Back Exam: Reports: normal inspection Extremities: Reports: normal pulses Skin: Reports: warm Neurological: Reports: no new focal deficit, normal gait, normal speech Psy/Mental Status: Reports: alert, normal affect, normal mood *Q Meaningful Use (DIS) - VTE *Q VTE Criteria *Q: - Stroke *Q Stroke Criteria *Q: - AMI *Q AMI Criteria *Q:
== END 2016-07-12 11:20 | disposition home or self-care (01) | DRG 638 ==
LOC: JD.ED 15:35 → JD.ICU 18:40
PROVIDERS: ADMIT Internal Medicine Cardiovascular Disease; ATTEND Internal Medicine Cardiovascular Disease
DX: E10.10 Type 1 diabetes mellitus with ketoacidosis without coma (principal); F10.988 Alcohol use, unspecified with other alcohol-induced disorder; N17.9 Acute kidney failure, unspecified; Y90.0 Blood alcohol level of less than 20 mg/100 ml; R07.9 Chest pain, unspecified; Z79.4 Long term (current) use of insulin; Z96.41 Presence of insulin pump (external) (internal); K21.9 Gastro-esophageal reflux disease without esophagitis; E78.00 Pure hypercholesterolemia, unspecified; F17.200 Nicotine dependence, unspecified, uncomplicated; I12.9 Hypertensive chronic kidney disease with stage 1 through stage 4 chronic kidney disease, or unspecified chronic kidney disease; N18.3 Chronic kidney disease, stage 3 (moderate); Z79.899 Other long term (current) drug therapy; E86.0 Dehydration
CPT/HCPCS: 36415; 36600; 71010; 71010-26; 71020; 71020-26; 80048; 80053; 80061; 80306; 81001; 82009; 82150; 82553; 82803; 82962; 83036; 83605; 83735; 84484; 85025; 85610; 86140; 86738; 90715; 93005; 96361; 96372; 96374; 96375; 99285; 99285-25; A9270-GY; C9113; G0480; J1170; J1815-GY; J1817; J2405; J2765; J3475; J7030; J7040; J7042

== ENCOUNTER 2020-10-02 23:04 | Emergency (ER) | payer OTHER ==
[2020-10-02 23:23] VITALS: BP 167/97; PULSE 75
[2020-10-03] MEDS ORDERED: Sodium Chloride 0.9% 1,000 ML IV SCH (00:15)
--- NOTE | 2020-10-03 00:48 | EDM.PDOC ---
ED HPI GENERAL MEDICAL PROBLEM - General Chief Complaint: Neuro Symptoms/Deficits Stated Complaint: MEDICAL CHECK Time Seen by Provider: 10/03/20 00:26 Source of Information: Reports: Patient, Family () History Limitations: Reports: No Limitations - History of Present Illness INITIAL COMMENTS - FREE TEXT/NARRATIVE: Mr. Oliver is a very pleasant 45-year-old gentleman who now presents the ED after suffering a syncopal episode. He states that he had been seated in a chair in his office for about 30 to 45 minutes, when he felt hot and dizzy. The next thing he knew, a colleague was standing over him. He was told that he had fallen out of his chair and was unconscious for about 10 seconds or so. He states that he struck the back of his head when he fell, and bit his tongue, but that he is not otherwise injured. He denies experiencing recent chest pain, palpitations, or dyspnea. He acknowledges, however, that he is out of shape and that he becomes dyspneic with exertion, more so as he gets older. He denies having recent lower extremity edema or swelling. No prior similar symptoms. Here in the ED, the patient's initial BP is found to be elevated 167/97, oth erwise, he is hemodynamically stable, afebrile, saturating 98% on room air. I have told by his triage nurse that he may have also had a repeat very brief syncopal episode while being triaged. No dysrhythmias were noted on the telemetry monitor. The patient tells me that he had a headache for about 2-1/2 weeks, resolving about 10 days ago after he saw a chiropractor. Otherwise, the patient denies having a recent fever, chills, sore throat, ear pain, nasal or sinus congestion, cough, dyspnea, chest pain, palpitations, nausea, vomiting, constipation, diarrhea, abdominal pain, urinary symptoms, recent weight gain or weight loss, recent bloody bowel movements or black bowel movements, recent joint aches, or rashes. The patient's PCP is Dr. Vikram Salvador. - Related Data Allergies Allergy/AdvReac Type Severity Reaction Status Date / Time No Known Allergies Allergy Verified 10/02/20 23:14 Home Meds: Home Meds Aspirin [Ecotrin EC] 81 mg PO DAILY 07/10/16 [History] Humalog Pump 0 units INJECT 07/10/16 [History] Lisinopril 20 mg PO DAILY 07/10/16 [History] Omeprazole 20 mg PO DAILY 07/10/16 [History] atorvaSTATin [Lipitor] 10 mg PO DAILY 07/10/16 [History] Past Medical History Cardiovascular History: Reports: High Cholesterol, Hypertension Gastrointestinal History: Reports: GERD Endocrine/Metabolic History: Reports: Diabetes, Type I - Past Surgical History HEENT Surgical History: Reports: Oral Surgery (dental extractions) Musculoskeletal Surgical History: Reports: Shoulder Surgery (left, arthroscopic x 1, right, arthroscopic x 2) Social & Family History - Tobacco Use Tobacco Use Status *Q: Never Tobacco User - Caffeine Use Caffeine Use: Reports: Coffee - Alcohol Use Alcohol Use History: Yes Alcohol Use Frequency: Socially - Recreational Drug Use Recreational Drug Use: No - Living Situation & Occupation Living situation: Reports: , with Spouse 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 - Physical Exam Exam: See Below Exam Limited By: No Limitations General Appearance: Alert, WD/WN, No Apparent Distress Eye Exam: Bilateral Eye: EOMI, Normal Inspection, PERRL Ears: Normal External Exam, Normal Canal, Hearing Grossly Normal, Normal TMs Nose: Normal Inspection, Normal Mucosa, No Blood Throat/Mouth: Normal Inspection, Normal Lips, Normal Teeth, Normal Gums, Normal Oropharynx, Normal Voice, No Airway Compromise Head Exam: Atraumatic, Normocephalic Neck: Normal Inspection, Supple, Non-Tender, Full Range of Motion. No: Lymphadenopathy (L), Lymphadenopathy (R) Respiratory/Chest: No Respiratory Distress, Lungs Clear, Normal Breath Sounds, No Accessory Muscle Use. No: Decreased Breath Sounds, Crackles, Rhonchi, Wheezing, Stridor, Prolonged Expiration Cardiovascular: Normal Peripheral Pulses, Regular Rate, Rhythm, No Edema, No Gallop, No JVD, No Murmur, No Rub GI/Abdominal: Normal Bowel Sounds, Soft, Non-Tender, No Organomegaly, No Distention, No Abnormal Bruit, No Mass Neuro Exam (Abbreviated): Alert, Oriented, CN II-XII Intact, Normal Cognition, No Motor/Sensory Deficits, Other (No pronator drift) Back Exam: Normal Inspection, Full Range of Motion, NT Extremities: Normal Inspection, Normal Range of Motion, No Pedal Edema, Normal Capillary Refill Psychiatric: Normal Affect Skin Exam: Warm, Dry, Intact, Normal Color, No Rash #1 Interpretation EKG Date: 10/02/20 Time: 23:46 Rhythm: NSR Rate (Beats/Min): 71 Omar: Normal P-Wave: Present (1st degree AVB) QRS: Normal ST-T: Normal QT: Normal Comparison: No Change (07/11/2016) Course - Vital Signs Last Recorded V/S: Last Vital Signs Temp 36.4 C 10/02/20 23:14 Pulse 75 10/02/20 23:14 Resp 15 10/02/20 23:14 BP 167/97 H 10/02/20 23:14 Pulse Ox 98 10/02/20 23:14 Orthostatic Blood Pressure [ 174/101 Standing] Orthostatic Blood Pressure [ 166/102 Sitting] Orthostatic Blood Pressure [ 143/91 Supine] - Orders/Labs/Meds Labs: Laboratory Tests 10/02/20 10/02/20 10/02/20 Range/Units 23:18 23:35 23:35 WBC (4.23-9.07) K/mm3 RBC (4.63-6.08) M/mm3 Hgb (13.7-17.5) gm/dl Hct (40.1-51.0) % MCV (79.0-92.2) fl MCH (25.7-32.2) pg MCHC (32.2-35.5) g/dl RDW Std Deviation (35.1-43.9) fL Plt Count (163-337) K/mm3 MPV (9.4-12.3) fl Neut % (Auto) (34.0-67.9) % Lymph % (Auto) (21.8-53.1) % Bladen % (Auto) (5.3-12.2) % Eos % (Auto) (0.8-7.0) Baso % (Auto) (0.1-1.2) % Neut # (Auto) (1.78-5.38) K/mm3 Lymph # (Auto) (1.32-3.57) K/mm3 Bladen # (Auto) (0.30-0.82) K/mm3 Eos # (Auto) (0.04-0.54) K/mm3 Baso # (Auto) (0.01-0.08) K/mm3 D-Dimer, Quantitative < 0.19 L (0.19-0.50) mg/L Sodium (136-145) mEq/L Potassium (3.5-5.1) mEq/L Chloride (98-107) mEq/L Carbon Dioxide (21-32) mEq/L Anion Gap (5-15) BUN (7-18) mg/dL Creatinine (0.7-1.3) mg/dL Est Cr Clr Drug Dosing mL/min Estimated GFR (MDRD) (>60) mL/min BUN/Creatinine Ratio (14-18) Glucose (70-99) mg/dL POC Glucose 181 H (70-99) mg/dL Calcium (8.5-10.1) mg/dL Magnesium 1.9 (1.8-2.4) mg/dL Total Bilirubin (0.2-1.0) mg/dL AST (15-37) U/L ALT (16-63) U/L Alkaline Phosphatase (46-116) U/L Troponin I < 0.017 (0.00-0.056) ng/mL Total Protein (6.4-8.2) g/dl Albumin (3.4-5.0) g/dl Globulin gm/dL Albumin/Globulin Ratio (1-2) TSH 3rd Generation 2.635 (0.358-3.74) uIU/mL SARS-CoV-2 RNA (RICCI) (NEGATIVE) 10/02/20 10/02/20 10/03/20 Range/Units 23:55 23:55 00:54 WBC 6.88 (4.23-9.07) K/mm3 RBC 4.95 (4.63-6.08) M/mm3 Hgb 15.7 D (13.7-17.5) gm/dl Hct 46.0 (40.1-51.0) % MCV 92.9 H (79.0-92.2) fl MCH 31.7 (25.7-32.2) pg MCHC 34.1 (32.2-35.5) g/dl RDW Std Deviation 40.9 (35.1-43.9) fL Plt Count 247 (163-337) K/mm3 MPV 9.8 (9.4-12.3) fl Neut % (Auto) 70.0 H (34.0-67.9) % Lymph % (Auto) 18.8 L (21.8-53.1) % Bladen % (Auto) 8.6 (5.3-12.2) % Eos % (Auto) 1.6 (0.8-7.0) Baso % (Auto) 0.7 (0.1-1.2) % Neut # (Auto) 4.82 (1.78-5.38) K/mm3 Lymph # (Auto) 1.29 L (1.32-3.57) K/mm3 Bladen # (Auto) 0.59 (0.30-0.82) K/mm3 Eos # (Auto) 0.11 (0.04-0.54) K/mm3 Baso # (Auto) 0.05 (0.01-0.08) K/mm3 D-Dimer, Quantitative (0.19-0.50) mg/L Sodium 139 (136-145) mEq/L Potassium 4.3 (3.5-5.1) mEq/L Chloride 101 (98-107) mEq/L Carbon Dioxide 30 (21-32) mEq/L Anion Gap 12.3 (5-15) BUN 18 (7-18) mg/dL Creatinine 1.1 (0.7-1.3) mg/dL Est Cr Clr Drug Dosing 81.18 mL/min Estimated GFR (MDRD) > 60 (>60) mL/min BUN/Creatinine Ratio 16.4 (14-18) Glucose 203 H (70-99) mg/dL POC Glucose (70-99) mg/dL Calcium 9.1 (8.5-10.1) mg/dL Magnesium (1.8-2.4) mg/dL Total Bilirubin 0.4 (0.2-1.0) mg/dL AST 39 H (15-37) U/L ALT 38 (16-63) U/L Alkaline Phosphatase 87 (46-116) U/L Troponin I (0.00-0.056) ng/mL Total Protein 7.2 (6.4-8.2) g/dl Albumin 4.0 (3.4-5.0) g/dl Globulin 3.2 gm/dL Albumin/Globulin Ratio 1.3 (1-2) TSH 3rd Generation (0.358-3.74) uIU/mL SARS-CoV-2 RNA (RICCI) Negative (NEGATIVE) Meds: Medications Discontinued Medications Generic Name Dose Route Start Last Admin Trade Name Dionisio PRN Reason Stop Dose Admin Sodium Chloride 1,000 mls @ 150 mls/hr 10/03/20 00:15 10/03/20 00:05 Normal Saline IV 150 mls/hr ASDIRECTED [facility] Administration - Re-Assessments/Exams Free Text/Narrative Re-Assessment/Exam: 10/03/20 00:43 As above, the patient felt hot and dizzy while seated at work, then fell out of his chair, suffering an approximately 10-second episode of syncope. He states that he struck the back of his head, and he has a little pain there, but denies having a headache. He acknowledges, however, that he had near-daily headaches for about 2-1/2 weeks, which resolved about 10 days ago after he was adjusted by a chiropractor. Here in the ED, the patient may have suffered another brief syncopal episode, during which time there were no dysrhythmias noted on the telemetry monitor. An Accu-Chek at triage was 181, and the patient is not orthostatic. An ECG, obtained at triage, demonstrates a NSR at 71 bpm with a first-degree AV block, but is otherwise unremarkable. The patient's physical exam, including a thorough neuro exam, is completely normal. The etiology of the patient's syncope is not immediately obvious, however, at this time it appears unlikely to be due to hypoglycemia, hypovolemia, a cardiac dysrhythmia, an underlying neurologic problem, such as a seizure, or a vasovagal event. This raises the concern of a pulmonary embolus. I have ordered a work- up that includes several blood tests, including a D-dimer, along with a chest x- ray, since the patient reports having some exertional dyspnea, and a CT of the head without contrast due to his report of headaches. I have also ordered a swab for the SARS-CoV-2 virus in the event that the patient requires admission or transfer. In the meantime, the patient was started on NS at 150 mL/h at triage, which I will continue. 10/03/20 01:16 The patient's CBC is unremarkable. His CMP is remarkable for modest hyperglycemia of 203, and an AST slightly elevated at 39, with an ALT normal at 38, and the remainder of his CMP being unremarkable. His magnesium level is within normal limits at 1.9. His TSH is within normal is at 2.635. His troponin is undetectably low. His D-dimer is undetectably low. 10/03/20 01:47 Two-view chest radiograph appears to be grossly normal. The cardiac silhouette is within normal limits. No pulmonary vascular congestion. No pleural effusions. No focal infiltrate. No pneumothorax. Formal read per the Radiologist pending. 10/03/20 03:26 CT of the head without contrast is read by [facility] as "No acute intracranial abnormality." 10/03/20 04:03 Test results discussed with the patient and his . As above, today's work-up is completely unremarkable, and does not explain the cause of his syncope. I will discharge him home with the recommendation that he follow-up with Dr. Salvador, who will likely refer him to a [employer] Operator for further work-up that will likely include an echocardiogram and a Holter monitor. Departure - Departure Time of Disposition: 04:04 Disposition: Home, Self-Care 01 Condition: Good Clinical Impression: Syncope and collapse - Discharge Information *PRESCRIPTION DRUG MONITORING PROGRAM REVIEWED*: Not Applicable *COPY OF PRESCRIPTION DRUG MONITORING REPORT IN PATIENT STEFANI: Not Applicable Instructions: Syncope, [id number] Referrals: Vikram Salvador MD [Primary Care Provider] - Forms: ED Department Discharge Additional Instructions: You were seen in the emergency room after feeling hot and dizzy, then falling out of your chair at work, apparently passing out for about 10 seconds. You may have had a second episode in the ER. Work-up in the ER included positional blood pressure checks, an Accu-Chek, numer ous blood tests, a chest x-ray, a CT of your head, and an ECG. Your entire work-up was unremarkable. You have not suffered a heart attack. You do not have a blood clot in your lungs. No abnormalities were found on the CT scan of your head. You are not anemic. No electrolyte abnormalities were found. You are not hyper or hypothyroid. No abnormal rhythms were noted on your telemetry monitor. The cause of your syncopal (passing out) episode was not found, however, further evaluation is needed. We recommend that you follow-up with your PCP, Dr. Vikram Salvador, at the next available appointment. He will likely refer you to a [employer] Operator for further evaluation. If any other problems, please do not hesitate to return to the ER. Sepsis Event Note (ED) - Evaluation Sepsis Screening Result: No Definite Risk
--- NOTE | 2020-10-03 06:37 | CR ---
Chest: 2 views of the chest were obtained. Comparison: Prior chest x-ray of is seen. Heart size and mediastinum are normal. Minimal density within the lateral left costophrenic angle is seen which is stable from prior chest x-ray compatible with slight scarring. Minimal density is noted within the right mid to lower lung having the appearance of a nodule measuring 1.5 cm. Lungs otherwise are clear. No acute osseous abnormality is appreciated. Impression: 1. Possible nodule within the right mid to lower lung. Noncontrast chest CT recommended to hopefully exclude this possibility. 2. Mild scarring within the lateral left costophrenic angle. 3. Nothing acute is otherwise seen on 2 view chest x-ray. Diagnostic code #9
--- NOTE | 2020-10-03 07:38 | CT ---
Head CT Technique: Multiple axial sections through the brain were obtained. Intravenous contrast was not utilized. Reconstructed coronal and sagittal images were obtained. Comparison: No prior intracranial imaging is available. Findings: Ventricles along with basal cisterns and sulci over the convexities are within normal limits for the patient's age. No abnormal parenchymal densities are seen. No evidence of intracranial hemorrhage. No midline shift or mass-effect is seen. Bone window settings were reviewed. Visualized mastoid sinuses and paranasal sinuses show nothing acute. No acute calvarial abnormality is appreciated. Impression: 1. Nothing acute is appreciated on noncontrast head CT study. Diagnostic code #1 I agree with preliminary report from [facility] finalized on 10/03/20, 3:25 AM CDT, code 1
== END 2020-10-03 04:23 | disposition home or self-care (01) ==
LOC: JD.ED 23:04
DX: R55 Syncope and collapse (principal); E78.00 Pure hypercholesterolemia, unspecified; I10 Essential (primary) hypertension; K21.9 Gastro-esophageal reflux disease without esophagitis; E10.9 Type 1 diabetes mellitus without complications; Z79.899 Other long term (current) drug therapy; Z79.82 Long term (current) use of aspirin; Z20.822 Contact with and (suspected) exposure to COVID-19
CPT/HCPCS: 36415; 70450; 71046; 80053; 82947; 83735; 84443; 84484; 85025; 85379; 87635; 93005; 99284; J7030; 93010; U0002